=== PATIENT | female | born 1945 | race Caucasian/White ===

== ENCOUNTER 2018-07-30 21:39 | Emergency (ER) | payer MEDICARE ==
[2018-07-30] MEDS ORDERED: ONDANSETRON 4 MG/2 ML VIAL IVP STA (23:25)
[2018-07-30] MEDS ORDERED: SODIUM CHLORIDE 0.9% 1,000 ML IV STA (23:25)
[2018-07-30] MEDS ORDERED: ACETAMINOPHEN IV (For NPO) 1,000 MG in EMPTY BAG 1 BAG IVPB STA (23:26)
[2018-07-30 23:34] LABS: Basophils % (A) 0 %; Eosinophils # (A) 0.1 k/uL (0-0.7); Eosinophils % (A) 1 %; HCT 43.8 % (34.0-46.0); HGB 14.3 gm/dL (11.4-16.0); Lymphocytes # (A) 0.9 k/uL (1.0-4.8); Lymphocytes % (A) 10 %; MCH 29.9 pg (25.0-35.0); MCHC 32.6 g/dL (31.0-37.0); MCV 91.8 fL (80.0-100.0); Monocytes # (A) 0.5 k/uL (0-1.0); Monocytes % (A) 6 %; Neutrophils # (A) 7.6 k/uL (1.3-7.7); Neutrophils % (A) 83 %; Platelet Count 237 k/uL (150-450); RBC 4.77 m/uL (3.80-5.40); RDW 13.1 % (11.5-15.5); WBC 9.1 k/uL (3.8-10.6)
--- NOTE | 2018-07-30 23:48 | XR ---
EXAMINATION TYPE: XR chest 2V DATE OF EXAM: 07/30/2018 COMPARISON: To 413 HISTORY: Dizziness TECHNIQUE: Frontal and lateral views of the chest are obtained. FINDINGS: Heart and mediastinum are normal. Lungs are clear of consolidation. There is no pleural ef fusion. Costophrenic angles are clear. IMPRESSION: No active cardiopulmonary disease. There is slight improved inspiration compared to old exam.
[2018-07-30 23:49] LABS: ALT 33 U/L (9-52); AST 27 U/L (14-36); Albumin 4.4 g/dL (3.5-5.0); Alkaline Phosphatase 44 U/L (38-126); Amylase 47 U/L (30-110); Anion Gap 11 mmol/L; Blood Urea Nitrogen 14 mg/dL (7-17); Carbon Dioxide 25 mmol/L (22-30); Chloride 100 mmol/L (98-107); Glucose 162 mg/dL (74-99); Lipase 91 U/L (23-300); Sodium 136 mmol/L (137-145); Total Bilirubin 0.6 mg/dL (0.2-1.3); Total Protein 7.5 g/dL (6.3-8.2)
[2018-07-30 23:54] LABS: Potassium 4.4 mmol/L (3.5-5.1)
[2018-07-31 00:52] LABS: Appearance,Urine Clear (Clear); Bilirubin,Urine Negative (Negative); Blood,Urine Negative (Negative); Color,Urine Light Yellow; Glucose,Urine (UA) 1+ (Negative); Ketones,Urine 1+ (Negative); Leukocyte Esterase,Urine Moderate (Negative); Mucus,Urine Rare /hpf; Nitrite,Urine Negative (Negative); Protein,Urine Negative (Negative); RBC,Urine 1 /hpf (0-5); Specific Gravity,Urine 1.009 (1.001-1.035); Squamous Epithelial Cell,Urine 1 /hpf (0-4); Urobilinogen,Urine <2.0 mg/dL (<2.0); WBC,Urine 14 /hpf (0-5)
--- NOTE | 2018-07-31 01:44 | CT ---
EXAMINATION TYPE: CT brain wo con DATE OF EXAM: 07/31/2018 COMPARISON: 10/25/2012 HISTORY: Prior 2013, Dizziess, [place], nausea CT DLP: 1017.90 mGycm Automated exposure control for dose reduction was used. FINDINGS: There is mild cerebral cortical atrophy. There is no mass effect nor midline shift. There is no sign of intracranial hemorrhage. The calvarium is intact. IMPRESSION: NEGATIVE CT SCAN OF THE BRAIN. MINIMAL ATROPHY. NO CHANGE.
[2018-07-31] MEDS ORDERED: KETOROLAC 30 MG/ML 1 ML VIAL IVP STA (01:51)
--- NOTE | 2018-07-31 01:53 | ED ---
Dizziness HPI - General Chief Complaint: Dizziness Stated Complaint: dizzy/vomiting Time Seen by Provider: 07/30/18 22:43 Source: patient Mode of arrival: ambulatory Limitations: no limitations - History of Present Illness Initial Comments: 73-year-old female patient presents to the emergency department today with complaints of dizziness, vomiting, and diarrhea. Patient states that she woke that early this morning with dizziness. Reports that the room would feel like it was spinning whenever she is sat up or stood up. Patient states that she had to hold onto furniture in order to walk. Patient states early this afternoon she started to have vomiting and diarrhea. States that she had several episodes of each. She denies any hematochezia, melena, or hematemesis with this. She denies any fever, chills, abdominal pain, or weakness. States that she did develop a headache as well this evening. She reports pain to her entire head as well as her face and teeth. She denies any nasal congestion or drainage. Denies any ear pain. Denies any numbness, tingling, or weakness to her extremities. Denies any blurred or double vision. Denies any sensitivity to light or sound. Patient denies any recent rash, shortness breath, chest pain , back pain, hematuria, dysuria, urinary urgency, urinary frequency, or any other complaints. - Related Data Home Medications Medication Instructions Recorded Confirmed Bismuth Subsalicylate 262 mg PO ONCE PRN 07/30/18 07/30/18 [Pepto-Bismol] Meclizine HCl 12.5 mg PO DAILY PRN 07/30/18 07/30/18 Metoprolol Tartrate [Lopressor] 25 mg PO BID 07/30/18 07/30/18 glipiZIDE [Glucotrol] 5 mg PO AC-BID 07/30/18 07/30/18 metFORMIN HCL [Glucophage] 500 mg PO BID 07/30/18 07/30/18 Previous Rx's Medication Instructions Recorded Ondansetron [Zofran ODT] 4 mg PO Q8HR PRN #10 tab 07/31/18 Allergies Allergy/AdvReac Type Severity Reaction Status Date / Time NARCOTICS AdvReac Vomiting Uncoded 07/30/18 22:07 Review of Systems ROS Statement: Those systems with pertinent positive or pertinent negative responses have been documented in the HPI. ROS Other: All systems not noted in ROS Statement are negative. Past Medical History Past Medical History: Diabetes Mellitus Additional Past Medical History / Comment(s): IRREGULAR HEART RATE History of Any Multi-Drug Resistant Organisms: None Reported Past Surgical History: Appendectomy, Section, Cholecystectomy, Hysterectomy, Tonsillectomy Additional Past Surgical History / Comment(s): 2 WRIST SURGERIES LEFT Past Psychological History: No Psychological Hx Reported Smoking Status: Former smoker Past Alcohol Use History: None Reported Past Drug Use History: None Reported General Exam Limitations: no limitations General appearance: alert, in no apparent distress, other (Physical well- developed, well-nourished elderly female patient in no acute distress. Vital signs upon presentation are temperature 98.5F, pulse 93, respirations 18, blood pressure 155/90, pulse ox 96% on room air.) Eye exam: Present: normal appearance, PERRL, EOMI. Absent: scleral icterus, conjunctival injection, nystagmus, periorbital swelling ENT exam: Present: normal exam, normal oropharynx, mucous membranes moist, TM's normal bilaterally Respiratory exam: Present: normal lung sounds bilaterally. Absent: respiratory distress, wheezes, rales, rhonchi, stridor Cardiovascular Exam: Present: regular rate, normal rhythm, normal heart sounds. Absent: systolic murmur, diastolic murmur, rubs, gallop, clicks GI/Abdominal exam: Present: soft, normal bowel sounds. Absent: distended, tenderness, guarding, rebound, rigid Neurological exam: Present: alert, oriented X3, CN II-XII intact, other ( Strength in all 4 extremities is 5/5.) Psychiatric exam: Present: normal affect, normal mood Skin exam: Present: warm, dry, intact, normal color. Absent: rash Course Vital Signs 07/30/18 07/31/18 22:02 02:22 Temperature 98.5 F 97.9 F Pulse Rate 93 88 Respiratory 18 16 Rate Blood Pressure 155/90 134/80 O2 Sat by Pulse 96 98 Oximetry EKG Findings - EKG Comments: EKG Findings:: EKG obtained at 2240 shows normal sinus rhythm with a ventricular rate of 89, TN interval 154, QRS duration 88, QT 378, QTC 459. No evidence of ST elevation or depression. Medical Decision Making - Medical Decision Making 73-year-old female patient presented to the emergency department today for evaluation of dizziness, vomiting, and diarrhea. Physical examination was relatively unremarkable. Patient was neurologically intact. Labs reviewed and were unremarkable. Urine did have 14 white blood cells, this has been sent for culture. CT brain was unremarkable, showed no acute intracranial abnormalities. Chest x-ray showed no acute cardiopulmonary process. Patient was given IV fluids and nausea medicine here in the department. Upon reevaluation she is feeling better. She is able to sit and stand up, states that her dizziness has decreased. Did discuss that her symptoms are consistent with gastroenteritis. She is instructed to follow-up with her primary care physician for recheck in 1-2 days. Return parameters discussed in detail. She verbalizes understanding and agrees with this plan. - Lab Data Result diagrams: 07/30/18 22:50 07/30/18 22:50 Lab Results 07/30/18 07/30/18 07/30/18 Range/Units 22:50 22:50 22:50 WBC 9.1 (3.8-10.6) k/uL RBC 4.77 (3.80-5.40) m/uL Hgb 14.3 (11.4-16.0) gm/dL Hct 43.8 (34.0-46.0) % MCV 91.8 (80.0-100.0) fL MCH 29.9 (25.0-35.0) pg MCHC 32.6 (31.0-37.0) g/dL RDW 13.1 (11.5-15.5) % Plt Count 237 (150-450) k/uL Neutrophils % 83 % Lymphocytes % 10 % Monocytes % 6 % Eosinophils % 1 % Basophils % 0 % Neutrophils # 7.6 (1.3-7.7) k/uL Lymphocytes # 0.9 L (1.0-4.8) k/uL Monocytes # 0.5 (0-1.0) k/uL Eosinophils # 0.1 (0-0.7) k/uL Basophils # 0.0 (0-0.2) k/uL PT 10.0 (9.0-12.0) sec INR 1.0 (<1.2) Sodium 136 L (137-145) mmol/L Potassium 4.4 (3.5-5.1) mmol/L Chloride 100 (98-107) mmol/L Carbon Dioxide 25 (22-30) mmol/L Anion Gap 11 mmol/L BUN 14 (7-17) mg/dL Creatinine 0.63 (0.52-1.04) mg/dL Est GFR (CKD-EPI)AfAm >90 (>60 ml/min/1.73 sqM) Est GFR (CKD-EPI)NonAf 89 (>60 ml/min/1.73 sqM) Glucose 162 H (74-99) mg/dL Calcium 10.0 (8.4-10.2) mg/dL Total Bilirubin 0.6 (0.2-1.3) mg/dL AST 27 (14-36) U/L ALT 33 (9-52) U/L Alkaline Phosphatase 44 (38-126) U/L Troponin I (0.000-0.034) ng/mL Total Protein 7.5 (6.3-8.2) g/dL Albumin 4.4 (3.5-5.0) g/dL Amylase 47 (30-110) U/L Lipase 91 (23-300) U/L Urine Color Urine Appearance (Clear) Urine pH (5.0-8.0) Ur Specific [place] (1.001-1.035) Urine Protein (Negative) Urine Glucose (UA) (Negative) Urine Ketones (Negative) Urine Blood (Negative) Urine Nitrite (Negative) Urine Bilirubin (Negative) Urine Urobilinogen (<2.0) mg/dL Ur Leukocyte Esterase (Negative) Urine RBC (0-5) /hpf Urine WBC (0-5) /hpf Ur Squamous Epith Cells (0-4) /hpf Urine Mucus (None) /hpf 07/30/18 07/31/18 Range/Units 22:50 00:30 WBC (3.8-10.6) k/uL RBC (3.80-5.40) m/uL Hgb (11.4-16.0) gm/dL Hct (34.0-46.0) % MCV (80.0-100.0) fL MCH (25.0-35.0) pg MCHC (31.0-37.0) g/dL RDW (11.5-15.5) % Plt Count (150-450) k/uL Neutrophils % % Lymphocytes % % Monocytes % % Eosinophils % % Basophils % % Neutrophils # (1.3-7.7) k/uL Lymphocytes # (1.0-4.8) k/uL Monocytes # (0-1.0) k/uL Eosinophils # (0-0.7) k/uL Basophils # (0-0.2) k/uL PT (9.0-12.0) sec INR (<1.2) Sodium (137-145) mmol/L Potassium (3.5-5.1) mmol/L Chloride (98-107) mmol/L Carbon Dioxide (22-30) mmol/L Anion Gap mmol/L BUN (7-17) mg/dL Creatinine (0.52-1.04) mg/dL Est GFR (CKD-EPI)AfAm (>60 ml/min/1.73 sqM) Est GFR (CKD-EPI)NonAf (>60 ml/min/1.73 sqM) Glucose (74-99) mg/dL Calcium (8.4-10.2) mg/dL Total Bilirubin (0.2-1.3) mg/dL AST (14-36) U/L ALT (9-52) U/L Alkaline Phosphatase (38-126) U/L Troponin I <0.012 (0.000-0.034) ng/mL Total Protein (6.3-8.2) g/dL Albumin (3.5-5.0) g/dL Amylase (30-110) U/L Lipase (23-300) U/L Urine Color Light Yellow Urine Appearance Clear (Clear) Urine pH 7.0 (5.0-8.0) Ur Specific [place] 1.009 (1.001-1.035) Urine Protein Negative (Negative) Urine Glucose (UA) 1+ H (Negative) Urine Ketones 1+ H (Negative) Urine Blood Negative (Negative) Urine Nitrite Negative (Negative) Urine Bilirubin Negative (Negative) Urine Urobilinogen <2.0 (<2.0) mg/dL Ur Leukocyte Esterase Moderate H (Negative) Urine RBC 1 (0-5) /hpf Urine WBC 14 H (0-5) /hpf Ur Squamous Epith Cells 1 (0-4) /hpf Urine Mucus Rare H (None) /hpf - Radiology Data Radiology results: report reviewed, image reviewed CT brain without contrast was obtained. There is mild cerebral cortical atrophy. No mass effect or midline shift. There is no sign of intracranial hemorrhage. The calvarium is intact. Impression by Dr. Damon shows negative computed tomography scan of the brain. Minimal atrophy. No change. Two-view x-ray of the chest is obtained. Heart mediastinum are normal. Lungs are clear consolidation. There is no pleural effusion. Costophrenic angles are clear. Impression by Dr. Damon shows no active cardiopulmonary disease. There are slight improved inspiration compared to old exam. Disposition Clinical Impression: Dizziness, Gastroenteritis Disposition: HOME SELF-CARE Condition: Good Instructions: Gastroenteritis (ED), Dizziness (ED) Additional Instructions: Start with clear liquid diet and advance as tolerated. Take medications as directed. Follow-up with your primary care physician for recheck in 1-2 days. Return here immediately for any new, worsening, or concerning symptoms. Prescriptions: Ondansetron [Zofran ODT] 4 mg PO Q8HR PRN #10 tab PRN Reason: Nausea Is patient prescribed a controlled substance at d/c from ED?: No Referrals: Joe Nava DO [Primary Care Provider] - 1-2 days Time of Disposition: 01:53
[2018-07-31] MEDS ORDERED: ONDANSETRON 4 MG ODT STARTER PACK 2 TAB BTL PO STA (02:12)
[2018-07-31 02:23] VITALS: BP 134/80; PULSE 88; RESP 16; TEMP 97.9
== END 2018-07-31 02:23 | disposition home or self-care (01) ==
LOC: EC 21:39
DX: K52.9 Noninfective gastroenteritis and colitis, unspecified (principal); R42 Dizziness and giddiness; E11.9 Type 2 diabetes mellitus without complications; Z79.84 Long term (current) use of oral hypoglycemic drugs; Z79.899 Other long term (current) drug therapy; Z87.891 Personal history of nicotine dependence; Z88.5 Allergy status to narcotic agent
CPT/HCPCS: 99284; 96374; 96375 ×2; 96361; 36415; 93005; 80053; 82150; 83690; 84484; 85025; 85610; 81001; 87086; 71046; 70450; J2405; J1885; J0131; S0119

== ENCOUNTER 2018-11-16 00:15 | Emergency (ER) | payer MEDICARE ==
[2018-11-16 00:21] VITALS: RESP 18
[2018-11-16] MEDS ORDERED: SODIUM CHLORIDE 0.9% 1,000 ML IV STA (00:27)
--- NOTE | 2018-11-16 00:28 | ED ---
Abdominal Pain HPI - General Chief Complaint: Abdominal Pain Stated Complaint: Abd Pain Time Seen by Provider: 11/16/18 00:26 Source: patient Mode of arrival: ambulatory Limitations: no limitations - History of Present Illness Initial Comments: Blaire is a pleasant 73-year-old female presents the emergency department for evaluation of progressively worsening left-sided flank pain for 3 days duration. Patient reports the pain is worse with laying down but she cannot find any comfortable positions. Patient reports decreased appetite but denies any other complaints including fevers, chills, nausea, vomiting, dysuria hematuria change in bladder habits. Patient does have a history of kidney stones but reports this is not similar. Patient also states that she had a colonoscopy 3 weeks ago and was told that she had diverticulosis but she has never had diverticulitis. She did have 3 polyps removed at that time of the colonoscopy but was advised that they were benign. She reports that the colonoscopy was performed due to recent change in bowel habits including having frequent diarrhea and sudden onset of diarrhea which has resulted in her having some inability to make it to the restroom prior to having an accident. She reports that this is improving as she has started taking a fiber supplement since being evaluated by gastroenterology. - Related Data Home Medications Medication Instructions Recorded Confirmed Metoprolol Tartrate [Lopressor] 25 mg PO BID 07/30/18 11/16/18 glipiZIDE [Glucotrol] 5 mg PO AC-BID 07/30/18 11/16/18 metFORMIN HCL [Glucophage] 500 mg PO BID 07/30/18 11/16/18 Previous Rx's Medication Instructions Recorded Cephalexin [Keflex] 500 mg PO Q6HR 5 Days #12 cap 11/16/18 Allergies Allergy/AdvReac Type Severity Reaction Status Date / Time NARCOTICS AdvReac Vomiting Uncoded 11/16/18 00:21 Review of Systems ROS Statement: Those systems with pertinent positive or pertinent negative responses have been documented in the HPI. ROS Other: All systems not noted in ROS Statement are negative. Past Medical History Past Medical History: Diabetes Mellitus Additional Past Medical History / Comment(s): IRREGULAR HEART RATE History of Any Multi-Drug Resistant Organisms: None Reported Past Surgical History: Appendectomy, Section, Cholecystectomy, Hysterectomy, Orthopedic Surgery, Tonsillectomy Additional Past Surgical History / Comment(s): 2 WRIST SURGERIES LEFT , colonoscopy Past Psychological History: No Psychological Hx Reported Smoking Status: Former smoker Past Alcohol Use History: None Reported Past Drug Use History: None Reported General Exam - General Exam Comments Initial Comments: Physical Exam GENERAL: Patient is well-developed and well-nourished. Patient is nontoxic and well- hydrated and is in no distress. HENT: Normocephalic, Atraumatic. EYES: PERRL, EOMI PULMONARY: Unlabored respirations. No audible rales rhonchi or wheezing was noted. CARDIOVASCULAR: There is a regular rate and rhythm without any murmurs gallops or rubs. ABDOMEN: Soft and nontender with normal bowel sounds. SKIN: Skin is clear with no lesions or rashes and otherwise unremarkable. : Deferred NEUROLOGIC: Patient is alert and oriented x3. Moving all extremities spontaneously MUSCULOSKELETAL: Normal extremities with adequate strength and full range of motion. No lower extremity swelling or edema. No calf tenderness. PSYCHIATRIC: Normal psychiatric evaluation. 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 Patient agreeable to plan for discharge home with oral antibiotics. First dose ordered and administered in the emergency department patient was given a Dosepak to go home with and a prescription for 5 days. Patient's pertaining care were answered return parameters were discussed the patient was discharged home in stable condition - Lab Data Result diagrams: 11/16/18 00:50 11/16/18 00:50 Lab Results 11/16/18 11/16/18 11/16/18 Range/Units 00:50 00:50 00:50 WBC 9.3 (3.8-10.6) k/uL RBC 4.50 (3.80-5.40) m/uL Hgb 14.0 (11.4-16.0) gm/dL Hct 41.9 (34.0-46.0) % MCV 93.0 (80.0-100.0) fL MCH 31.1 (25.0-35.0) pg MCHC 33.4 (31.0-37.0) g/dL RDW 13.3 (11.5-15.5) % Plt Count 222 (150-450) k/uL Neutrophils % 67 % Lymphocytes % 20 % Monocytes % 6 % Eosinophils % 4 % Basophils % 1 % Neutrophils # 6.2 (1.3-7.7) k/uL Lymphocytes # 1.9 (1.0-4.8) k/uL Monocytes # 0.6 (0-1.0) k/uL Eosinophils # 0.4 (0-0.7) k/uL Basophils # 0.1 (0-0.2) k/uL Sodium 141 (137-145) mmol/L Potassium 4.3 (3.5-5.1) mmol/L Chloride 105 (98-107) mmol/L Carbon Dioxide 29 (22-30) mmol/L Anion Gap 7 mmol/L BUN 16 (7-17) mg/dL Creatinine 0.96 (0.52-1.04) mg/dL Est GFR (CKD-EPI)AfAm 68 (>60 ml/min/1.73 sqM) Est GFR (CKD-EPI)NonAf 59 (>60 ml/min/1.73 sqM) Glucose 131 H (74-99) mg/dL Calcium 9.7 (8.4-10.2) mg/dL Total Bilirubin 0.4 (0.2-1.3) mg/dL AST 18 (14-36) U/L ALT 26 (9-52) U/L Alkaline Phosphatase 55 (38-126) U/L Total Protein 7.0 (6.3-8.2) g/dL Albumin 4.2 (3.5-5.0) g/dL Amylase 55 (30-110) U/L Lipase 269 (23-300) U/L Urine Color Light Yellow Urine Appearance Clear (Clear) Urine pH 7.0 (5.0-8.0) Ur Specific [place] 1.007 (1.001-1.035) Urine Protein Negative (Negative) Urine Glucose (UA) Negative (Negative) Urine Ketones Negative (Negative) Urine Blood Negative (Negative) Urine Nitrite Negative (Negative) Urine Bilirubin Negative (Negative) Urine Urobilinogen <2.0 (<2.0) mg/dL Ur Leukocyte Esterase Large H (Negative) Urine RBC 1 (0-5) /hpf Urine WBC 59 H (0-5) /hpf Ur Squamous Epith Cells 1 (0-4) /hpf Disposition Clinical Impression: Left flank pain, UTI (urinary tract infection) Disposition: HOME SELF-CARE Condition: Good Instructions (If sedation given, give patient instructions): Flank Pain (ED) Prescriptions: Cephalexin [Keflex] 500 mg PO Q6HR 5 Days #12 cap Is patient prescribed a controlled substance at d/c from ED?: No Referrals: Joe Nava DO [Primary Care Provider] - 1-2 days
[2018-11-16 01:09] LABS: Basophils # (A) 0.1 k/uL (0-0.2); Basophils % (A) 1 %; Eosinophils # (A) 0.4 k/uL (0-0.7); Eosinophils % (A) 4 %; HCT 41.9 % (34.0-46.0); Lymphocytes # (A) 1.9 k/uL (1.0-4.8); Lymphocytes % (A) 20 %; MCH 31.1 pg (25.0-35.0); MCHC 33.4 g/dL (31.0-37.0); Monocytes # (A) 0.6 k/uL (0-1.0); Monocytes % (A) 6 %; Neutrophils # (A) 6.2 k/uL (1.3-7.7); Neutrophils % (A) 67 %; Platelet Count 222 k/uL (150-450); RDW 13.3 % (11.5-15.5); WBC 9.3 k/uL (3.8-10.6)
--- NOTE | 2018-11-16 01:20 | XR ---
EXAMINATION TYPE: XR KUB DATE OF EXAM: 11/16/2018 COMPARISON: NONE HISTORY: Abdominal pain TECHNIQUE: 2 views upright FINDINGS: There is some subsegmental atelectasis at both lung bases. Bowel gas pattern is normal. The re is no sign of intestinal obstruction or pneumoperitoneum. Fecal pattern is normal. There are no pa thologic calcifications over the right kidney. There is a possible 4 mm calculus interpolar left kidn ey. IMPRESSION: Possible left renal calculus. Atelectasis at the lung bases.
[2018-11-16 01:22] LABS: Appearance,Urine Clear (Clear); Bilirubin,Urine Negative (Negative); Blood,Urine Negative (Negative); Color,Urine Light Yellow; Glucose,Urine (UA) Negative (Negative); Ketones,Urine Negative (Negative); Leukocyte Esterase,Urine Large (Negative); Nitrite,Urine Negative (Negative); Protein,Urine Negative (Negative); RBC,Urine 1 /hpf (0-5); Specific Gravity,Urine 1.007 (1.001-1.035); Squamous Epithelial Cell,Urine 1 /hpf (0-4); Urobilinogen,Urine <2.0 mg/dL (<2.0); WBC,Urine 59 /hpf (0-5)
[2018-11-16 01:27] LABS: Albumin 4.2 g/dL (3.5-5.0); Calcium 9.7 mg/dL (8.4-10.2); Potassium 4.3 mmol/L (3.5-5.1); Total Bilirubin 0.4 mg/dL (0.2-1.3)
--- NOTE | 2018-11-16 02:20 | CT ---
EXAMINATION TYPE: CT abdomen pelvis w con DATE OF EXAM: 11/16/2018 COMPARISON: None HISTORY: Left sided abd pain CT DLP: 1057 mGycm Automated exposure control for dose reduction was used. TECHNIQUE: Helical acquisition of images was performed from the lung bases through the pelvis. CONTRAST: Performed without Oral Contrast and with IV Contrast, patient injected with 100 mL of Isovue 300. FINDINGS: There is some linear density at the lung bases consistent with atelectasis. Heart size is normal. The re is no pericardial effusion. There is no pleural effusion. There is small hiatal hernia. The remain wilner of the stomach appears normal. Liver appears normal. Bile ducts are not dilated. There is apparent cholecystectomy. Spleen appears n ormal. There is no pancreatic mass. There is punctate pancreatic calcification at could relate to old inflammatory disease. There is no adrenal mass. Kidneys show satisfactory contrast opacification. There is irregular 5 mm c alculus in the upper pole right kidney. There is a 5 mCi calculus lower pole left kidney. Ureters are not dilated. There is satisfactory contrast excretion. Bladder distends smoothly. There is no inguinal hernia. There is no free fluid in the pelvis. The oneyda endix is not seen. There is no sign of appendicitis. There is no mesenteric edema. Abdominal aorta sh ows mild atheromatous change. There is no sign of free air. There is no ascites. Lumbar vertebra have normal alignment. Posterior elements are intact. Disc spaces are fairly well-nadia ntained. Bony pelvis is intact. There is 3.5 x 2 cm oval-shaped fat density mass within the right glu teal muscle related to lipoma. IMPRESSION: MILD SCARRING AND SUBSEGMENTAL ATELECTASIS AT THE LUNG BASES. SMALL HIATAL HERNIA. NONOBSTRUCTING WERO ATERAL RENAL CALCULI. MILD ATHEROSCLEROTIC VASCULAR DISEASE. I DO NOT SEE A CAUSE FOR LEFT FLANK PAIN . THERE ARE A FEW SIGMOID DIVERTICULA WITHOUT EVIDENCE OF DIVERTICULITIS.
[2018-11-16] MEDS ORDERED: CEPHALEXIN 500MG STARTER PACK 4 CAP BTL PO STA (03:29)
[2018-11-16 03:39] VITALS: BP 139/82; PULSE 87; TEMP 97.9
== END 2018-11-16 03:30 | disposition home or self-care (01) ==
LOC: EC 00:15
DX: N39.0 Urinary tract infection, site not specified (principal); R10.9 Unspecified abdominal pain; R19.7 Diarrhea, unspecified; E11.9 Type 2 diabetes mellitus without complications; Z87.891 Personal history of nicotine dependence; Z79.84 Long term (current) use of oral hypoglycemic drugs; Z79.899 Other long term (current) drug therapy; Z88.5 Allergy status to narcotic agent; Z90.49 Acquired absence of other specified parts of digestive tract; Z90.710 Acquired absence of both cervix and uterus
CPT/HCPCS: 36415; 80053; 82150; 83690; 85025; 81001; 74018; 74177; 99284; 96360; Q9967

== ENCOUNTER 2022-11-17 23:02 | Emergency (ER) | payer MEDICARE ==
[2022-11-17] MEDS ORDERED: SODIUM CHLORIDE 0.9% 1,000 ML IV STA (23:11)
--- NOTE | 2022-11-17 23:12 | ED ---
Abdominal Pain HPI - General Stated Complaint: abdominal pain Time Seen by Provider: 11/17/22 23:11 Source: RN notes reviewed, old records reviewed - History of Present Illness Initial Comments: This is a 77-year-old female to the ER for evaluation, she presents today for evaluation of abdominal pain left-sided abdominal pain positive nausea no vomiting symptoms about 4 PM or just before dinner today. They've been episodic. She does have a prior history of positive colonoscopy for diverticulosis no history of infection no history of surgery. Patient states also reports from her belly of the removed gallbladder, uterus, appendix. Patient has no fevers no travel history no sick contacts and has never had surgery at this hospital MD Complaint: abdominal pain -: hour(s) Location: diffuse, LLQ Radiation: epigastric, suprapubic Migration to: LLQ Severity: moderate Severity scale (1-10): 4 Quality: cramping, stabbing Consistency: constant, intermittent Improves With: nothing Worsens With: nothing Associated Symptoms: nausea Treatments Prior to Arrival: other (0) - Related Data Home Medications Medication Instructions Recorded Confirmed Metoprolol Tartrate [Lopressor] 25 mg PO BID 07/30/18 11/16/18 glipiZIDE [Glucotrol] 5 mg PO AC-BID 07/30/18 11/16/18 metFORMIN HCL [Glucophage] 500 mg PO BID 07/30/18 11/16/18 Previous Rx's Medication Instructions Recorded Cephalexin [Keflex] 500 mg PO Q6HR 5 Days #12 cap 11/16/18 Allergies Allergy/AdvReac Type Severity Reaction Status Date / Time phenylephrine AdvReac Swelling Verified 11/17/22 23:13 NARCOTICS AdvReac Vomiting Uncoded 11/17/22 23:13 Review of Systems ROS Statement: Those systems with pertinent positive or pertinent negative responses have been documented in the HPI. ROS Other: All systems not noted in ROS Statement are negative. Past Medical History Past Medical History: Diabetes Mellitus Additional Past Medical History / Comment(s): IRREGULAR HEART RATE History of Any Multi-Drug Resistant Organisms: None Reported Past Surgical History: Appendectomy, Section, Cholecystectomy, Hysterectomy, Orthopedic Surgery, Tonsillectomy Additional Past Surgical History / Comment(s): 2 WRIST SURGERIES LEFT , colonoscopy Past Psychological History: No Psychological Hx Reported Past Alcohol Use History: None Reported Past Drug Use History: None Reported General Exam General appearance: alert, in no apparent distress Head exam: Present: atraumatic, normocephalic, normal inspection Eye exam: Present: normal appearance, PERRL, EOMI. Absent: scleral icterus, conjunctival injection, periorbital swelling ENT exam: Present: normal exam, mucous membranes moist Neck exam: Present: normal inspection. Absent: tenderness, meningismus, lymphadenopathy Respiratory exam: Present: normal lung sounds bilaterally. Absent: respiratory distress, wheezes, rales, rhonchi, stridor Cardiovascular Exam: Present: regular rate, normal rhythm, normal heart sounds. Absent: systolic murmur, diastolic murmur, rubs, gallop, clicks GI/Abdominal exam: Present: soft, normal bowel sounds. Absent: distended, tenderness, guarding, rebound, rigid Extremities exam: Present: normal inspection, full ROM, normal capillary refill. Absent: tenderness, pedal edema, joint swelling, calf tenderness Back exam: Present: normal inspection Neurological exam: Present: alert, oriented X3, CN II-XII intact Psychiatric exam: Present: normal affect, normal mood Skin exam: Present: warm, dry, intact, normal color. Absent: rash Course Vital Signs 11/17/22 11/18/22 23:03 01:15 Temperature 97.6 F Pulse Rate 107 H 85 Respiratory 16 16 Rate Blood Pressure 156/81 145/83 O2 Sat by Pulse 95 96 Oximetry - Reevaluation(s) Reevaluation #1: 11/17/22 23:19 Medical record is reviewed Reevaluation #2: 11/17/22 23:19 Patient has abdominal pain is well-controlled Reevaluation #3: 11/17/22 23:19 Patient informed results questions answered Reevaluation #4: 11/17/22 23:19 80 abdominal pain movement Reevaluation #5: 11/17/22 23:19 Was pt. sent in by a medical professional or institution? @ -[by , PA, FILAMENT MAKER, urgent care, hospital, or longterm] Did you speak to anyone other than the patient for history? @ -[EMS, parent, family, police, friend?] Did you review nursing and triage notes? @ -[agree or disagree, why?] Were old charts reviewed? @ -[outside hosp., previous admissions, EMS record, old EKG, old radiological studies, urgent care reports/EKGs, longterm records?] Differential Diagnosis? @ -[chest pain, altered mental status abdominal pain women, abdominal pain men, vaginal bleeding, weakness, fever, dyspnea, syncope, headache, dizziness, GI bleed, back pain, seizure] EKG interpreted by me (3pts min.)? @ -[none] X-rays interpreted by me (1pt min.)? @ -[none] CT interpreted by me (1pt min.)? @ -[none] U/S interpreted by me (1pt. min.)? @ -[none] What testing was considered but not performed? (CT, X-rays, U/S, labs)? Why? @ [CT, X-rays, U/S, labs? Why?] What meds were considered but not given? Why? @ -[none] Did you discuss the management of the patient with other professionals? @ -[professionals i.e. Dr, PA, FILAMENT MAKER, Lab, RT, Psych Nurse, Food Safety Auditor, Governor Assembler, Teacher, Beef Grinder, disease case manager? Give summary] Did you reconcile home meds? @ -[none] Was smoking cessation discussed for >3mins.? @ -[none] Was critical care preformed (if so, how long)? @ -[none] Were there social determinants of health that impacted care today? How? (Homelessness, low income, unemployed, alcoholism, drug addiction, transportation, low edu. Level, literacy, decrease access to med. care, retirement, rehab)? @ -[Homelessness, low income, unemployed, alcoholism, drug addiction, trans portation, low edu. Level, literacy, decrease access to med. care, retirement, rehab?] Was there de-escalation of care discussed even if they declined? (Discuss DNR or withdrawal of care, Hospice)? @ -[Discuss DNR or withdrawal of care, Hospice?] What co-morbidities impacted this encounter? (DM, HTN, Smoking, COPD, CAD, Cancer, CVA, Hep., AIDS, mental health diagnosis, sleep apnea, morbid obesity)? @ -[DM, HTN, Smoking, COPD, CAD, Cancer, CVA, Hep., AIDS, mental health diagnosis, sleep apnea, morbid obesity?] Was patient admitted / discharged? @ -[hospital course] Undiagnosed new problem with uncertain prognosis? @ -[none] Drug Therapy requiring intensive monitoring for toxicity (Heparin, Nitro, Insulin, Cardizem)? @ -[none] Were any procedures done? @ -[none] Diagnosis/symptom? @ -[default] Acute, or Chronic, or Acute on Chronic? @ -[default] Uncomplicated (without systemic symptoms) or Complicated (systemic symptoms)? @ -[default] Side effects of treatment? @ -[none] Exacerbation, Progression, or Severe Exacerbation] @ -[no] Poses a threat to life or bodily function? @ -[no] Medical Decision Making - Medical Decision Making 37 female DF for evaluation of pain nausea vomiting symptoms are all resolved 60 scan is negative labwork is normal. Will be discharged home - Lab Data Result diagrams: 11/17/22 23:32 11/17/22 23:32 Lab Results 11/17/22 11/17/22 11/17/22 Range/Units 23:32 23:32 23:32 WBC 8.4 (3.8-10.6) k/uL RBC 4.65 (3.80-5.40) m/uL Hgb 14.1 (11.4-16.0) gm/dL Hct 42.0 (34.0-46.0) % MCV 90.3 (80.0-100.0) fL MCH 30.2 (25.0-35.0) pg MCHC 33.5 (31.0-37.0) g/dL RDW 13.2 (11.5-15.5) % Plt Count 202 (150-450) k/uL MPV 7.7 Neutrophils % 60 % Lymphocytes % 27 % Monocytes % 7 % Eosinophils % 4 % Basophils % 1 % Neutrophils # 5.1 (1.3-7.7) k/uL Lymphocytes # 2.3 (1.0-4.8) k/uL Monocytes # 0.6 (0-1.0) k/uL Eosinophils # 0.3 (0-0.7) k/uL Basophils # 0.1 (0-0.2) k/uL Sodium 142 (137-145) mmol/L Potassium 4.0 (3.5-5.1) mmol/L Chloride 106 (98-107) mmol/L Carbon Dioxide 30 (22-30) mmol/L Anion Gap 6 mmol/L BUN 12 (7-17) mg/dL Creatinine 0.86 (0.52-1.04) mg/dL Est GFR (CKD-EPI)AfAm 76 (>60 ml/min/1.73 sqM) Est GFR (CKD-EPI)NonAf 66 (>60 ml/min/1.73 sqM) Glucose 124 H (74-99) mg/dL Plasma Lactic Acid Daniel 1.0 (0.7-2.0) mmol/L Calcium 9.1 (8.4-10.2) mg/dL Total Bilirubin 0.2 (0.2-1.3) mg/dL AST 19 (14-36) U/L ALT 17 (4-34) U/L Alkaline Phosphatase 65 (38-126) U/L Troponin I (0.000-0.034) ng/mL Total Protein 6.9 (6.3-8.2) g/dL Albumin 4.2 (3.5-5.0) g/dL Amylase 50 (30-110) U/L Lipase 206 (23-300) U/L 11/17/22 Range/Units 23:32 WBC (3.8-10.6) k/uL RBC (3.80-5.40) m/uL Hgb (11.4-16.0) gm/dL Hct (34.0-46.0) % MCV (80.0-100.0) fL MCH (25.0-35.0) pg MCHC (31.0-37.0) g/dL RDW (11.5-15.5) % Plt Count (150-450) k/uL MPV Neutrophils % % Lymphocytes % % Monocytes % % Eosinophils % % Basophils % % Neutrophils # (1.3-7.7) k/uL Lymphocytes # (1.0-4.8) k/uL Monocytes # (0-1.0) k/uL Eosinophils # (0-0.7) k/uL Basophils # (0-0.2) k/uL Sodium (137-145) mmol/L Potassium (3.5-5.1) mmol/L Chloride (98-107) mmol/L Carbon Dioxide (22-30) mmol/L Anion Gap mmol/L BUN (7-17) mg/dL Creatinine (0.52-1.04) mg/dL Est GFR (CKD-EPI)AfAm (>60 ml/min/1.73 sqM) Est GFR (CKD-EPI)NonAf (>60 ml/min/1.73 sqM) Glucose (74-99) mg/dL Plasma Lactic Acid Daniel (0.7-2.0) mmol/L Calcium (8.4-10.2) mg/dL Total Bilirubin (0.2-1.3) mg/dL AST (14-36) U/L ALT (4-34) U/L Alkaline Phosphatase (38-126) U/L Troponin I <0.012 (0.000-0.034) ng/mL Total Protein (6.3-8.2) g/dL Albumin (3.5-5.0) g/dL Amylase (30-110) U/L Lipase (23-300) U/L Disposition Clinical Impression: Abdominal pain Disposition: HOME SELF-CARE Condition: Good Instructions (If sedation given, give patient instructions): Abdominal Pain (ED) Is patient prescribed a controlled substance at d/c from ED?: No Referrals: Silvino Joaquin MD [Primary Care Provider] - 1-2 days Time of Disposition: 01:55
[2022-11-17 23:13] VITALS: RESP 16; TEMP 97.6
[2022-11-17] MEDS: PANTOPRAZOLE 40 MG/10 ML VIAL IVP STA ×2 (23:30→23:33)
[2022-11-17] MEDS: ONDANSETRON 4 MG/2 ML VIAL IVP STA ×2 (23:30→23:33)
[2022-11-17 23:46] LABS: Basophils # (A) 0.1 k/uL (0-0.2); Basophils % (A) 1 %; Eosinophils # (A) 0.3 k/uL (0-0.7); Eosinophils % (A) 4 %; HGB 14.1 gm/dL (11.4-16.0); Lymphocytes # (A) 2.3 k/uL (1.0-4.8); Lymphocytes % (A) 27 %; MCH 30.2 pg (25.0-35.0); MCHC 33.5 g/dL (31.0-37.0); MCV 90.3 fL (80.0-100.0); Mean Platelet Volume 7.7; Monocytes # (A) 0.6 k/uL (0-1.0); Monocytes % (A) 7 %; Neutrophils # (A) 5.1 k/uL (1.3-7.7); Neutrophils % (A) 60 %; Platelet Count 202 k/uL (150-450); RBC 4.65 m/uL (3.80-5.40); RDW 13.2 % (11.5-15.5); WBC 8.4 k/uL (3.8-10.6)
[2022-11-17 23:57] LABS: Albumin 4.2 g/dL (3.5-5.0); Calcium 9.1 mg/dL (8.4-10.2); Total Bilirubin 0.2 mg/dL (0.2-1.3); Total Protein 6.9 g/dL (6.3-8.2)
--- NOTE | 2022-11-18 00:41 | CT ---
EXAMINATION TYPE: CT abdomen pelvis wo con DATE OF EXAM: 11/18/2022 COMPARISON: 11/16/2018 HISTORY: Left sided abdominal pain CT DLP: 714.3 mGycm Automated exposure control for dose reduction was used. Images obtained from the diaphragm to the floor the pelvis without contrast. There is mild subsegmental atelectasis at the posterior lung bases. No pleural effusion. Heart size i s normal. No pericardial effusion. There are small hilar hernia. Liver and spleen are intact. There is no evidence of pancreatic mass. Stomach is intact. The bile ducts are not dilated. There is no adrenal mass. Kidneys of normal size. There is 6 mm calcu ruth lower pole left kidney. There is a 3 mm calculus anterior right kidney. Ureters are not dilated. No hydronephrosis. The bladder distends smoothly. No retroperitoneal adenopathy. No free fluid in the pelvis. No pelvic mass. There is hysterectomy. There are numerous sigmoid diverticula. No diverticulitis. There is no mesenteric edema. No ascites o r free air. No sign of a bowel obstruction. Appendix not seen. No sign of thickened appendix. The lumbar vertebrae have normal alignment. There is mild narrowing at L5-S1 disc space. No compressi on fracture. Bony pelvis is intact. The hip joints are intact. There is right sided gluteal muscle li everett without change. IMPRESSION: There is colonic diverticulosis without diverticulitis. Bilateral nonobstructing renal calculi. No si gnificant adverse change compared to the old exam.
[2022-11-18] MEDS ORDERED: KETOROLAC 15 MG/ML 1 ML VIAL IVP STA (01:03)
[2022-11-18] MEDS ORDERED: MORPHINE SULFATE 4 MG/ML SYRINGE IVP STA (01:03)
[2022-11-18 01:15] VITALS: BP 145/83; PULSE 85
[2022-11-18 01:57] LABS: Appearance,Urine Clear (Clear); Bilirubin,Urine Negative (Negative); Blood,Urine Negative (Negative); Color,Urine Light Yellow; Glucose,Urine (UA) 4+ (Negative); Ketones,Urine Negative (Negative); Leukocyte Esterase,Urine Large (Negative); Nitrite,Urine Negative (Negative); PH, Urine 7.5 (5.0-8.0); Protein,Urine Negative (Negative); RBC,Urine 1 /hpf (0-5); Specific Gravity,Urine 1.013 (1.001-1.035); Squamous Epithelial Cell,Urine 1 /hpf (0-4); Urobilinogen,Urine <2.0 mg/dL (<2.0); WBC,Urine 8 /hpf (0-5)
== END 2022-11-18 01:58 | disposition home or self-care (01) ==
LOC: EC 23:02
DX: R10.32 Left lower quadrant pain (principal); E11.9 Type 2 diabetes mellitus without complications; Z79.84 Long term (current) use of oral hypoglycemic drugs; Z79.899 Other long term (current) drug therapy; Z88.5 Allergy status to narcotic agent; Z88.8 Allergy status to other drugs, medicaments and biological substances
CPT/HCPCS: 36415; 80053; 82150; 83605; 83690; 84484; 85025; 81001; 74176; 99284; 96374; 96361 ×2; J1885

== ENCOUNTER 2023-04-01 23:48 | Emergency (ER) | payer MEDICARE ==
[2023-04-02] MEDS ORDERED: ONDANSETRON 4 MG/2 ML VIAL IVP STA (00:08)
[2023-04-02] MEDS ORDERED: SODIUM CHLORIDE 0.9% 500 ML 500 ML IV STA (00:08)
[2023-04-02] MEDS ORDERED: FAMOTIDINE 20 MG/2 ML VIAL IV STA (00:09)
--- NOTE | 2023-04-02 00:39 | ED ---
Abdominal Pain HPI - General Chief Complaint: Abdominal Pain Stated Complaint: Abdominal pain Time Seen by Provider: 04/01/23 23:54 Source: patient Mode of arrival: ambulatory Limitations: no limitations - History of Present Illness Initial Comments: Patient is a 78-year-old female presenting with chief complaint of abdominal pain. Patient states that she had upper abdominal pain that started when she laid down to go to bed this evening. She states that she did go out to dinner and drink 2 glasses of wine and eat some foods that she normally does not eat. States that the pain is improved with sitting up. She admits to a lot of belching. No nausea or vomiting. No diarrhea or constipation. No dysuria or hematuria. No fevers or chills. Surgical history includes cholecystectomy, appendectomy, hysterectomy, and sections. - Related Data Home Medications Medication Instructions Recorded Confirmed Metoprolol Tartrate [Lopressor] 25 mg PO BID 07/30/18 11/16/18 glipiZIDE [Glucotrol] 5 mg PO AC-BID 07/30/18 11/16/18 metFORMIN HCL [Glucophage] 500 mg PO BID 07/30/18 11/16/18 Previous Rx's Medication Instructions Recorded Cephalexin [Keflex] 500 mg PO Q6HR 5 Days #12 cap 11/16/18 Cephalexin [Keflex] 500 mg PO Q12HR 7 Days #14 cap 04/02/23 Allergies Allergy/AdvReac Type Severity Reaction Status Date / Time phenylephrine AdvReac Swelling Verified 04/01/23 23:53 NARCOTICS AdvReac Vomiting Uncoded 04/01/23 23:53 Review of Systems ROS Statement: Those systems with pertinent positive or pertinent negative responses have been documented in the HPI. ROS Other: All systems not noted in ROS Statement are negative. Past Medical History Past Medical History: Diabetes Mellitus Additional Past Medical History / Comment(s): IRREGULAR HEART RATE History of Any Multi-Drug Resistant Organisms: None Reported Past Surgical History: Appendectomy, Section, Cholecystectomy, Hysterectomy, Orthopedic Surgery, Tonsillectomy Additional Past Surgical History / Comment(s): 2 WRIST SURGERIES LEFT , colonoscopy Past Psychological History: No Psychological Hx Reported Smoking Status: Former smoker Past Alcohol Use History: Rare Past Drug Use History: None Reported General Exam Limitations: no limitations General appearance: alert, in no apparent distress Head exam: Present: atraumatic, normocephalic, normal inspection Eye exam: Present: normal appearance, EOMI. Absent: scleral icterus, periorbital swelling Neck exam: Present: normal inspection, full ROM Respiratory exam: Present: normal lung sounds bilaterally. Absent: respiratory distress, wheezes, rales, rhonchi, stridor Cardiovascular Exam: Present: regular rate, normal rhythm, normal heart sounds. Absent: systolic murmur, diastolic murmur, rubs, gallop, clicks GI/Abdominal exam: Present: soft. Absent: distended, tenderness, guarding, rebound, rigid Neurological exam: Present: alert, oriented X3, CN II-XII intact Psychiatric exam: Present: normal affect, normal mood Skin exam: Present: warm, dry, intact, normal color. Absent: rash Course Vital Signs 04/01/23 04/02/23 23:49 02:04 Temperature 97.8 F 98.2 F Pulse Rate 102 H 89 Respiratory 20 16 Rate Blood Pressure 152/80 115/79 O2 Sat by Pulse 95 97 Oximetry Medical Decision Making - Medical Decision Making EKG: Sinus rhythm, ventricular rate 96. OH interval 165. QRS 82. QT 336. QTc 389. No ischemic changes. Interpreted by me. Was pt. sent in by a medical professional or institution (, PA, BOTTLE CASER, urgent care, hospital, or halfway...) When possible be specific @ -No Did you speak to anyone other than the patient for history (EMS, parent, family, police, friend...)? What history was obtained from this source @ -No Did you review nursing and triage notes (agree or disagree)? Why? @ -I reviewed and agree with nursing and triage notes Were old charts reviewed (outside hosp., previous admission, EMS record, old EKG, old radiological studies, urgent care reports/EKG's, halfway records)? Report findings @ -No old charts were reviewed Differential Diagnosis (chest pain, altered mental status, abdominal pain women, abdominal pain men, vaginal bleeding, weakness, fever, dyspnea, syncope, headache, dizziness, GI bleed, back pain, seizure, CVA, palpatations, mental health, musculoskeletal)? @ -MDM Differential Abdominal Pain Women: Appendicitis, Cholecystitis, diverticulosis, ischemic bowel, pancreatitis, hepatitis, UTI, gastroenteritis, AAA, incarcerated hernia, bowel obstruction, constipation, inflammatory bowel, hepatitis, peptic ulcer disease, splenic infarction, perforated viscus, vulvitis, ovarian torsion, PID, kidney stone, placenta abruption... This is not meant to be an all-inclusive list EKG interpreted by me (3pts min.). @ -As above X-rays interpreted by me (1pt min.). @ -None done CT interpreted by me (1pt min.). @ -None done U/S interpreted by me (1pt. min.). @ -None done What testing was considered but not performed or refused? (CT, X-rays, U/S, labs)? Why? @ -None What meds were considered but not given or refused? Why? @ -None Did you discuss the management of the patient with other professionals (professionals i.e. , PA, BOTTLE CASER, lab, RT, psych nurse, high school social studies teacher, tube cleaning operator, teacher, credit administration officer, clinical case manager)? Give summary @ -No Was smoking cessation discussed for >3mins.? @ -No Was critical care preformed (if so, how long)? @ -No Were there social determinants of health that impacted care today? How? (Homelessness, low income, unemployed, alcoholism, drug addiction, transportation, low edu. Level, literacy, decrease access to med. care, care home, rehab)? @ -No Was there de-escalation of care discussed even if they declined (Discuss DNR or withdrawal of care, Hospice)? DNR status @ -No What co-morbidities impacted this encounter? (DM, HTN, Smoking, COPD, CAD, Cancer, CVA, ARF, Chemo, Hep., AIDS, mental health diagnosis, sleep apnea, morbid obesity)? @ -None Was patient admitted / discharged? Hospital course, mention meds given and route, prescriptions, significant lab abnormalities, going to OR and other pertinent info. @ -78-year-old female presenting with chief complaint of epigastric pain that started this evening after lying down. Pain is improved with sitting up. Physical examination is unremarkable. Laboratory shows no leukocytosis or anemia. Negative troponin and EKG shows no ischemic changes. Lipase mildly elevated at 358. Urine shows erythema WBCs. Patient was educated on today's findings. Educated on GERD and UTI. Follow-up with PCP. Report back to ER with any new or worsening symptoms. Discussed return parameters and answered all questions. Patient conveyed verbal understanding and agreed to the plan. I discussed this case in detail with my attending Dr. Caicedo Undiagnosed new problem with uncertain prognosis? @ -No Drug Therapy requiring intensive monitoring for toxicity (Heparin, Nitro, Insulin, Cardizem)? @ -No Were any procedures done? @ -No Diagnosis/symptom? @ -GERD and UTI Acute, or Chronic, or Acute on Chronic? @ -Acute Uncomplicated (without systemic symptoms) or Complicated (systemic symptoms)? @ -Uncomplicated Side effects of treatment? @ -No Exacerbation, Progression, or Severe Exacerbation? @ -No Poses a threat to life or bodily function? How? (Chest pain, [place], [place], pneumonia, PE, COPD, DKA, ARF, appy, cholecystitis, CVA, Diverticulitis, Homicidal, Suicidal, threat to staff... and all critical care pts) @ -No - Lab Data Result diagrams: 04/02/23 00:29 04/02/23 00:29 Lab Results 04/02/23 04/02/23 04/02/23 Range/Units 00:29 00:29 00:29 WBC 7.9 (3.8-10.6) k/uL RBC 4.57 (3.80-5.40) m/uL Hgb 13.3 (11.4-16.0) gm/dL Hct 42.1 (34.0-46.0) % MCV 92.2 (80.0-100.0) fL MCH 29.0 (25.0-35.0) pg MCHC 31.5 (31.0-37.0) g/dL RDW 13.5 (11.5-15.5) % Plt Count 207 (150-450) k/uL MPV 7.6 Neutrophils % 64 % Lymphocytes % 22 % Monocytes % 6 % Eosinophils % 5 % Basophils % 1 % Neutrophils # 5.1 (1.3-7.7) k/uL Lymphocytes # 1.8 (1.0-4.8) k/uL Monocytes # 0.5 (0-1.0) k/uL Eosinophils # 0.4 (0-0.7) k/uL Basophils # 0.0 (0-0.2) k/uL PT 9.7 (9.0-12.0) sec INR 0.9 (<1.2) APTT 22.8 (22.0-30.0) sec Sodium 141 (137-145) mmol/L Potassium 4.2 (3.5-5.1) mmol/L Chloride 104 (98-107) mmol/L Carbon Dioxide 26 (22-30) mmol/L Anion Gap 11 mmol/L BUN 19 H (7-17) mg/dL Creatinine 0.89 (0.52-1.04) mg/dL Est GFR (CKD-EPI)AfAm 72 (>60 ml/min/1.73 sqM) Est GFR (CKD-EPI)NonAf 62 (>60 ml/min/1.73 sqM) Glucose 158 H (74-99) mg/dL Plasma Lactic Acid Daniel (0.7-2.0) mmol/L Calcium 9.1 (8.4-10.2) mg/dL Total Bilirubin 0.2 (0.2-1.3) mg/dL AST 19 (14-36) U/L ALT 18 (4-34) U/L Alkaline Phosphatase 52 (38-126) U/L Troponin I (0.000-0.034) ng/mL Total Protein 6.7 (6.3-8.2) g/dL Albumin 4.1 (3.5-5.0) g/dL Amylase 59 (30-110) U/L Lipase 358 H (23-300) U/L Urine Color Urine Appearance (Clear) Urine pH (5.0-8.0) Ur Specific [place] (1.001-1.035) Urine Protein (Negative) Urine Glucose (UA) (Negative) Urine Ketones (Negative) Urine Blood (Negative) Urine Nitrite (Negative) Urine Bilirubin (Negative) Urine Urobilinogen (<2.0) mg/dL Ur Leukocyte Esterase (Negative) Urine RBC (0-5) /hpf Urine WBC (0-5) /hpf Ur Squamous Epith Cells (0-4) /hpf 04/02/23 04/02/23 04/02/23 Range/Units 00:29 00:29 00:31 WBC (3.8-10.6) k/uL RBC (3.80-5.40) m/uL Hgb (11.4-16.0) gm/dL Hct (34.0-46.0) % MCV (80.0-100.0) fL MCH (25.0-35.0) pg MCHC (31.0-37.0) g/dL RDW (11.5-15.5) % Plt Count (150-450) k/uL MPV Neutrophils % % Lymphocytes % % Monocytes % % Eosinophils % % Basophils % % Neutrophils # (1.3-7.7) k/uL Lymphocytes # (1.0-4.8) k/uL Monocytes # (0-1.0) k/uL Eosinophils # (0-0.7) k/uL Basophils # (0-0.2) k/uL PT (9.0-12.0) sec INR (<1.2) APTT (22.0-30.0) sec Sodium (137-145) mmol/L Potassium (3.5-5.1) mmol/L Chloride (98-107) mmol/L Carbon Dioxide (22-30) mmol/L Anion Gap mmol/L BUN (7-17) mg/dL Creatinine (0.52-1.04) mg/dL Est GFR (CKD-EPI)AfAm (>60 ml/min/1.73 sqM) Est GFR (CKD-EPI)NonAf (>60 ml/min/1.73 sqM) Glucose (74-99) mg/dL Plasma Lactic Acid Daniel 1.5 (0.7-2.0) mmol/L Calcium (8.4-10.2) mg/dL Total Bilirubin (0.2-1.3) mg/dL AST (14-36) U/L ALT (4-34) U/L Alkaline Phosphatase (38-126) U/L Troponin I <0.012 (0.000-0.034) ng/mL Total Protein (6.3-8.2) g/dL Albumin (3.5-5.0) g/dL Amylase (30-110) U/L Lipase (23-300) U/L Urine Color Light Yellow Urine Appearance Clear (Clear) Urine pH 7.5 (5.0-8.0) Ur Specific [place] 1.024 (1.001-1.035) Urine Protein Negative (Negative) Urine Glucose (UA) 4+ H (Negative) Urine Ketones Negative (Negative) Urine Blood Negative (Negative) Urine Nitrite Negative (Negative) Urine Bilirubin Negative (Negative) Urine Urobilinogen <2.0 (<2.0) mg/dL Ur Leukocyte Esterase Moderate H (Negative) Urine RBC 2 (0-5) /hpf Urine WBC 39 H (0-5) /hpf Ur Squamous Epith Cells <1 (0-4) /hpf Disposition Clinical Impression: GERD (gastroesophageal reflux disease), UTI (urinary tract infection) Disposition: HOME SELF-CARE Condition: Good Instructions (If sedation given, give patient instructions): GERD (Gastroesophageal Reflux Disease) in Children (ED), Diet for Stomach Ulcers and Gastritis (ED), Urinary Tract Infection in Women (ED) Additional Instructions: Follow-up with PCP. Report back to ER with any new or worsening symptoms. Prescriptions: Cephalexin [Keflex] 500 mg PO Q12HR 7 Days #14 cap Is patient prescribed a controlled substance at d/c from ED?: No Referrals: Silvino Joaquin MD [Primary Care Provider] - 1-2 days Time of Disposition: 01:56
[2023-04-02 00:49] LABS: Basophils % (A) 1 %; Eosinophils # (A) 0.4 k/uL (0-0.7); Eosinophils % (A) 5 %; HCT 42.1 % (34.0-46.0); HGB 13.3 gm/dL (11.4-16.0); Lymphocytes # (A) 1.8 k/uL (1.0-4.8); Lymphocytes % (A) 22 %; MCHC 31.5 g/dL (31.0-37.0); MCV 92.2 fL (80.0-100.0); Mean Platelet Volume 7.6; Monocytes # (A) 0.5 k/uL (0-1.0); Monocytes % (A) 6 %; Neutrophils # (A) 5.1 k/uL (1.3-7.7); Neutrophils % (A) 64 %; Platelet Count 207 k/uL (150-450); RBC 4.57 m/uL (3.80-5.40); RDW 13.5 % (11.5-15.5); WBC 7.9 k/uL (3.8-10.6)
[2023-04-02 00:56] LABS: Appearance,Urine Clear (Clear); Bilirubin,Urine Negative (Negative); Blood,Urine Negative (Negative); Color,Urine Light Yellow; Glucose,Urine (UA) 4+ (Negative); Ketones,Urine Negative (Negative); Leukocyte Esterase,Urine Moderate (Negative); Nitrite,Urine Negative (Negative); PH, Urine 7.5 (5.0-8.0); Protein,Urine Negative (Negative); RBC,Urine 2 /hpf (0-5); Specific Gravity,Urine 1.024 (1.001-1.035); Squamous Epithelial Cell,Urine <1 /hpf (0-4); Urobilinogen,Urine <2.0 mg/dL (<2.0); WBC,Urine 39 /hpf (0-5)
[2023-04-02 01:01] LABS: ALT 18 U/L (4-34); AST 19 U/L (14-36); African American GFR (CKD) 72 (>60 ml/min/1.73 sqM); Albumin 4.1 g/dL (3.5-5.0); Alkaline Phosphatase 52 U/L (38-126); Amylase 59 U/L (30-110); Anion Gap 11 mmol/L; Blood Urea Nitrogen 19 mg/dL (7-17); Calcium 9.1 mg/dL (8.4-10.2); Carbon Dioxide 26 mmol/L (22-30); Chloride 104 mmol/L (98-107); Glucose 158 mg/dL (74-99); INR 0.9 (<1.2); Lipase 358 U/L (23-300); Non-African American GFR(CKD) 62 (>60 ml/min/1.73 sqM); Partial Thromboplastin Time 22.8 sec (22.0-30.0); Potassium 4.2 mmol/L (3.5-5.1); Prothrombin Time 9.7 sec (9.0-12.0); Sodium 141 mmol/L (137-145); Total Bilirubin 0.2 mg/dL (0.2-1.3); Total Protein 6.7 g/dL (6.3-8.2)
[2023-04-02 02:05] VITALS: BP 115/79; PULSE 89; RESP 16; TEMP 98.2
== END 2023-04-02 02:05 | disposition home or self-care (01) ==
LOC: EC 23:48
DX: N39.0 Urinary tract infection, site not specified (principal); K21.9 Gastro-esophageal reflux disease without esophagitis; E11.9 Type 2 diabetes mellitus without complications; Z79.84 Long term (current) use of oral hypoglycemic drugs; Z79.899 Other long term (current) drug therapy; Z87.891 Personal history of nicotine dependence; Z88.5 Allergy status to narcotic agent; Z90.49 Acquired absence of other specified parts of digestive tract
CPT/HCPCS: 36415; 93005; 80053; 82150; 83605; 83690; 84484; 85025; 85610; 85730; 81001; 99284; 96374; 96375; 96361; J2405

== ENCOUNTER 2023-06-01 03:54 | Emergency (ER) | payer MEDICARE ==
[2023-06-01 04:05] VITALS: RESP 18; TEMP 98
[2023-06-01] MEDS ORDERED: SODIUM CHLORIDE 0.9% 500 ML 500 ML IV STA (04:22)
--- NOTE | 2023-06-01 04:27 | ED ---
General Adult HPI - General Chief complaint: Abdominal Pain Stated complaint: left side pain Time Seen by Provider: 06/01/23 04:15 Source: patient Mode of arrival: ambulatory Limitations: no limitations - History of Present Illness Initial comments: This patient is 78-year-old woman who presents to have evaluation of pains that she states feels like spasms. She indicates the lateral aspect of the torso. She indicates the upper abdomen and chest wall. She states she was in bed trying sleep and she woke with spasm. Since then she has had recurring spasms they are sometimes provoked with movement. They last a few seconds up to a minute. She states that when they come on she can't move. She does note that she had done a fair amount of activity around the house yesterday but she does not recall one specific injury. Patient does not have any associated symptoms. No fever or chills. No dyspnea. No nausea or vomiting. No change in urination or bowel movements. Onset/Timin -: hour(s) Location: chest, abdomen Radiation: non-radiation Quality: other (Spasms) Consistency: intermittent Improves with: none Worsens with: movement Associated Symptoms: denies other symptoms Treatments Prior to Arrival: none - Related Data Home Medications Medication Instructions Recorded Confirmed Metoprolol Tartrate [Lopressor] 25 mg PO BID 07/30/18 11/16/18 glipiZIDE [Glucotrol] 5 mg PO AC-BID 07/30/18 11/16/18 metFORMIN HCL [Glucophage] 500 mg PO BID 07/30/18 11/16/18 Previous Rx's Medication Instructions Recorded Cephalexin [Keflex] 500 mg PO Q6HR 5 Days #12 cap 11/16/18 Cephalexin [Keflex] 500 mg PO Q12HR 7 Days #14 cap 04/02/23 diazePAM [Valium] 5 mg PO Q8HR PRN 3 Days #12 tab 06/01/23 Allergies Allergy/AdvReac Type Severity Reaction Status Date / Time phenylephrine AdvReac Swelling Verified 06/01/23 04:05 NARCOTICS AdvReac Vomiting Uncoded 06/01/23 04:05 Review of Systems ROS Statement: Those systems with pertinent positive or pertinent negative responses have been documented in the HPI. ROS Other: All systems not noted in ROS Statement are negative. Constitutional: Denies: fever, chills, weakness Respiratory: Denies: cough, dyspnea Cardiovascular: Denies: chest pain, palpitations, edema Gastrointestinal: Denies: abdominal pain, nausea, vomiting Genitourinary: Denies: dysuria, hematuria Musculoskeletal: Denies: back pain Skin: Denies: rash Neurological: Denies: headache, weakness, numbness Past Medical History Past Medical History: Diabetes Mellitus Additional Past Medical History / Comment(s): IRREGULAR HEART RATE History of Any Multi-Drug Resistant Organisms: None Reported Past Surgical History: Appendectomy, Section, Cholecystectomy, Hysterectomy, Orthopedic Surgery, Tonsillectomy Additional Past Surgical History / Comment(s): 2 WRIST SURGERIES LEFT , colonoscopy Past Psychological History: No Psychological Hx Reported Smoking Status: Former smoker Past Alcohol Use History: Rare Past Drug Use History: None Reported General Exam Limitations: no limitations General appearance: alert, in no apparent distress Head exam: Present: atraumatic, normocephalic Eye exam: Present: normal appearance. Absent: scleral icterus, conjunctival injection Neck exam: Present: normal inspection Respiratory exam: Present: normal lung sounds bilaterally. Absent: respiratory distress, wheezes, rales, rhonchi, stridor Cardiovascular Exam: Present: regular rate, normal rhythm, normal heart sounds. Absent: systolic murmur, diastolic murmur, rubs, gallop GI/Abdominal exam: Present: soft. Absent: distended, tenderness, guarding, rebound, rigid, mass Extremities exam: Present: normal inspection, normal capillary refill. Absent: pedal edema, calf tenderness Back exam: Present: normal inspection. Absent: CVA tenderness (R), CVA tenderness (L) Neurological exam: Present: alert Skin exam: Present: warm, dry, intact, normal color. Absent: rash Course Vital Signs 06/01/23 06/01/23 04:02 05:21 Temperature 98 F Pulse Rate 91 72 Respiratory 18 18 Rate Blood Pressure 138/77 108/65 O2 Sat by Pulse 98 97 Oximetry Medical Decision Making - Medical Decision Making Was pt. sent in by a medical professional or institution (, PA, SOCIAL MEDIA ASSISTANT, urgent care, hospital, or residential...) When possible be specific @ -[No] Did you speak to anyone other than the patient for history (EMS, parent, family, police, friend...)? What history was obtained from this source @ -[No] Did you review nursing and triage notes (agree or disagree)? Why? @ -[I reviewed and agree with nursing and triage notes] Were old charts reviewed (outside hosp., previous admission, EMS record, old EKG, old radiological studies, urgent care reports/EKG's, residential records)? Report findings @ -[No old charts were reviewed] Differential Diagnosis (chest pain, altered mental status, abdominal pain women, abdominal pain men, vaginal bleeding, weakness, fever, dyspnea, syncope, headache, dizziness, GI bleed, back pain, seizure, CVA, palpatations, mental health, musculoskeletal)? @ -[Differential Musculoskeletal Muscular strain, contusion, ligament sprain, fracture, arthritis, septic arthritis, bursitis, cellulitis, muscle spasm, nerve compression, DVT, arterial occlusion, herpes zoster, electrolyte abnormality, tumor.... This is not meant to be in all inclusive list EKG interpreted by me (3pts min.). @ -[ X-rays interpreted by me (1pt min.). @ -[None done] CT interpreted by me (1pt min.). @ -[None done] U/S interpreted by me (1pt. min.). @ -[None done] What testing was considered but not performed or refused? (CT, X-rays, U/S, labs)? Why? @ -[CT imaging was considered, but the patient is not having any red flag signs or symptoms. What meds were considered but not given or refused? Why? @ -[None] Did you discuss the management of the patient with other professionals (prof essionals i.e. , PA, SOCIAL MEDIA ASSISTANT, lab, RT, psych nurse, social science research assistant, off track betting manager, teacher, corporate security officer, case making machine operator)? Give summary @ -[No] Was smoking cessation discussed for >3mins.? @ -[No] Was critical care preformed (if so, how long)? @ -[No] Were there social determinants of health that impacted care today? How? (Homelessness, low income, unemployed, alcoholism, drug addiction, trans portation, low edu. Level, literacy, decrease access to med. care, senior living, rehab)? @ -[No] Was there de-escalation of care discussed even if they declined (Discuss DNR or withdrawal of care, Hospice)? DNR status @ -[No] What co-morbidities impacted this encounter? (DM, HTN, Smoking, COPD, CAD, Cancer, CVA, ARF, Chemo, Hep., AIDS, mental health diagnosis, sleep apnea, morbid obesity)? @ -[None] Was patient admitted / discharged? Hospital course, mention meds given and route, prescriptions, significant lab abnormalities, going to OR and other pertinent info. @ -[Patient is a 78-year-old woman presenting with spasms of the torso. The patient did have some relief of symptoms following the medication and she wanted to go home to rest. We discussed appropriate further care and follow-up as well as return parameters. Undiagnosed new problem with uncertain prognosis? @ -[No] Drug Therapy requiring intensive monitoring for toxicity (Heparin, Nitro, Insulin, Cardizem)? @ -[No] Were any procedures done? @ -[No] Diagnosis/symptom? @ -Acute muscle spasm Acute, or Chronic, or Acute on Chronic? @ -[default] Uncomplicated (without systemic symptoms) or Complicated (systemic symptoms)? @ -[Uncomplicated Side effects of treatment? @ -[No] Exacerbation, Progression, or Severe Exacerbation? @ -[No] Poses a threat to life or bodily function? How? (Chest pain, USA, OR, pneumonia, PE, COPD, DKA, ARF, appy, cholecystitis, CVA, Diverticulitis, Homicidal, Suicidal, threat to staff... and all critical care pts) @ -[No] - Lab Data Result diagrams: 06/01/23 04:35 06/01/23 04:35 Lab Results 06/01/23 06/01/23 Range/Units 04:35 04:35 WBC 7.0 (3.8-10.6) k/uL RBC 4.37 (3.80-5.40) m/uL Hgb 13.6 (11.4-16.0) gm/dL Hct 41.0 (34.0-46.0) % MCV 93.6 (80.0-100.0) fL MCH 31.2 (25.0-35.0) pg MCHC 33.3 (31.0-37.0) g/dL RDW 13.0 (11.5-15.5) % Plt Count 185 (150-450) k/uL MPV 7.4 Neutrophils % 64 % Lymphocytes % 23 % Monocytes % 6 % Eosinophils % 4 % Basophils % 1 % Neutrophils # 4.5 (1.3-7.7) k/uL Lymphocytes # 1.6 (1.0-4.8) k/uL Monocytes # 0.5 (0-1.0) k/uL Eosinophils # 0.3 (0-0.7) k/uL Basophils # 0.0 (0-0.2) k/uL Sodium 139 (137-145) mmol/L Potassium 4.3 (3.5-5.1) mmol/L Chloride 107 (98-107) mmol/L Carbon Dioxide 26 (22-30) mmol/L Anion Gap 6 mmol/L BUN 27 H (7-17) mg/dL Creatinine 1.07 H (0.52-1.04) mg/dL Est GFR (CKD-EPI)AfAm 58 (>60 ml/min/1.73 sqM) Est GFR (CKD-EPI)NonAf 50 (>60 ml/min/1.73 sqM) Glucose 126 H (74-99) mg/dL Calcium 9.1 (8.4-10.2) mg/dL Magnesium 1.9 (1.6-2.3) mg/dL Total Bilirubin 0.4 (0.2-1.3) mg/dL AST 21 (14-36) U/L ALT 15 (4-34) U/L Alkaline Phosphatase 53 (38-126) U/L C-Reactive Protein <0.5 (<1.0) mg/dL Total Protein 6.7 (6.3-8.2) g/dL Albumin 3.9 (3.5-5.0) g/dL Disposition Clinical Impression: Muscle spasm Disposition: HOME SELF-CARE Condition: Good Instructions (If sedation given, give patient instructions): Muscle Spasm (ED) Prescriptions: diazePAM [Valium] 5 mg PO Q8HR PRN 3 Days #12 tab PRN Reason: Spasms Is patient prescribed a controlled substance at d/c from ED?: Yes When asked, does pt state using other controlled substances?: No If prescribed controlled substance>3 days was MAPS reviewed?: Prescribed <3 Days Referrals: Silvino Joaquin MD [Primary Care Provider] - 1-2 days
[2023-06-01 04:55] LABS: ALT 15 U/L (4-34); AST 21 U/L (14-36); African American GFR (CKD) 58 (>60 ml/min/1.73 sqM); Albumin 3.9 g/dL (3.5-5.0); Alkaline Phosphatase 53 U/L (38-126); Anion Gap 6 mmol/L; Blood Urea Nitrogen 27 mg/dL (7-17); C Reactive Protein <0.5 mg/dL (<1.0); Calcium 9.1 mg/dL (8.4-10.2); Carbon Dioxide 26 mmol/L (22-30); Chloride 107 mmol/L (98-107); Glucose 126 mg/dL (74-99); Magnesium 1.9 mg/dL (1.6-2.3); Non-African American GFR(CKD) 50 (>60 ml/min/1.73 sqM); Potassium 4.3 mmol/L (3.5-5.1); Sodium 139 mmol/L (137-145); Total Bilirubin 0.4 mg/dL (0.2-1.3); Total Protein 6.7 g/dL (6.3-8.2)
[2023-06-01 04:59] LABS: Basophils % (A) 1 %; Eosinophils # (A) 0.3 k/uL (0-0.7); Eosinophils % (A) 4 %; HGB 13.6 gm/dL (11.4-16.0); Lymphocytes # (A) 1.6 k/uL (1.0-4.8); Lymphocytes % (A) 23 %; MCH 31.2 pg (25.0-35.0); MCHC 33.3 g/dL (31.0-37.0); MCV 93.6 fL (80.0-100.0); Mean Platelet Volume 7.4; Monocytes # (A) 0.5 k/uL (0-1.0); Monocytes % (A) 6 %; Neutrophils # (A) 4.5 k/uL (1.3-7.7); Neutrophils % (A) 64 %; Platelet Count 185 k/uL (150-450); RBC 4.37 m/uL (3.80-5.40)
[2023-06-01 05:32] VITALS: BP 108/65; PULSE 72
== END 2023-06-01 05:33 | disposition home or self-care (01) ==
LOC: EC 03:54
DX: M62.838 Other muscle spasm (principal); E11.9 Type 2 diabetes mellitus without complications; Z79.84 Long term (current) use of oral hypoglycemic drugs; Z88.5 Allergy status to narcotic agent; Z88.8 Allergy status to other drugs, medicaments and biological substances; Z87.891 Personal history of nicotine dependence; Z90.49 Acquired absence of other specified parts of digestive tract
CPT/HCPCS: 99284; 96374; 96361; 36415; 80053; 83735; 85025; 86140; J3360

== ENCOUNTER 2023-10-12 09:16 | Emergency (ER) | payer MEDICARE ==
[2023-10-12 09:30] VITALS: RESP 18
--- NOTE | 2023-10-12 09:54 | ED ---
Extremity Problem HPI - General Chief complaint: Extremity Problem,Nontraumatic Stated complaint: pain behind right knee Time Seen by Provider: 10/12/23 09:23 Source: patient, RN notes reviewed Mode of arrival: ambulatory Limitations: no limitations - History of Present Illness Initial comments: This is a 70-year-old female who presents to the emergency department for pain behind the right knee. States that this started a few days ago but seems to be getting worse. Denies any injuries. Her noted an enlarged and discolored vein to this area. She is not taking anything for her pain at this time. Denies any history of DVTs. Not taking any blood thinners. Denies any chest pain or shortness of breath. She is still able to ambulate. - Related Data Home Medications Medication Instructions Recorded Confirmed Metoprolol Tartrate [Lopressor] 25 mg PO BID 07/30/18 11/16/18 glipiZIDE [Glucotrol] 5 mg PO AC-BID 07/30/18 11/16/18 metFORMIN HCL [Glucophage] 500 mg PO BID 07/30/18 11/16/18 Previous Rx's Medication Instructions Recorded Cephalexin [Keflex] 500 mg PO Q6HR 5 Days #12 cap 11/16/18 Cephalexin [Keflex] 500 mg PO Q12HR 7 Days #14 cap 04/02/23 diazePAM [Valium] 5 mg PO Q8HR PRN 3 Days #12 tab 06/01/23 Allergies Allergy/AdvReac Type Severity Reaction Status Date / Time phenylephrine AdvReac Swelling Verified 10/12/23 09:19 NARCOTICS AdvReac Vomiting Uncoded 10/12/23 09:19 Review of Systems ROS Statement: Those systems with pertinent positive or pertinent negative responses have been documented in the HPI. ROS Other: All systems not noted in ROS Statement are negative. Past Medical History Past Medical History: Diabetes Mellitus Additional Past Medical History / Comment(s): IRREGULAR HEART RATE History of Any Multi-Drug Resistant Organisms: None Reported Past Surgical History: Appendectomy, Section, Cholecystectomy, Hysterectomy, Orthopedic Surgery, Tonsillectomy Additional Past Surgical History / Comment(s): 2 WRIST SURGERIES LEFT , colonoscopy Past Psychological History: No Psychological Hx Reported Smoking Status: Former smoker Past Alcohol Use History: Rare Past Drug Use History: None Reported General Exam Limitations: no limitations General appearance: alert, in no apparent distress Head exam: Present: atraumatic, normocephalic, normal inspection Respiratory exam: Present: normal lung sounds bilaterally. Absent: respiratory distress, wheezes, rales, rhonchi, stridor Cardiovascular Exam: Present: regular rate, normal rhythm, normal heart sounds. Absent: systolic murmur, diastolic murmur, rubs, gallop, clicks Extremities exam: Present: other (Tenderness to palpation behind the right patella in the popliteal fossa. No overlying swelling or deformities. No erythema or increased heat.) Neurological exam: Present: alert, oriented X3, CN II-XII intact Psychiatric exam: Present: normal affect, normal mood Skin exam: Present: warm, dry, intact, normal color. Absent: rash Course Vital Signs 10/12/23 10/12/23 09:17 11:49 Temperature 97.5 F L 98.1 F Pulse Rate 94 68 Respiratory 18 18 Rate Blood Pressure 151/79 146/78 O2 Sat by Pulse 96 97 Oximetry Medical Decision Making - Medical Decision Making This is a 78-year-old female who presents to the emergency department for pain behind her right knee. Was pt. sent in by a medical professional or institution? @ -No Did you speak to anyone other than the patient for history? @ -No Did you review nursing and triage notes? @ -Yes, and I agree, it is accurate with regards to the patient's symptoms. Were old charts reviewed? @ -No Differential Diagnosis? @ -Differential Knee Pain: Winter's cyst, bursitis, DVT, injury, this is not meant to be an all-inclusive list. EKG interpreted by me (3pts min.)? @ -Not obtained X-rays interpreted by me (1pt min.)? @ -Not obtained CT interpreted by me (1pt min.)? @ -Not obtained U/S interpreted by me (1pt. min.)? @ -Duplex US of the right lower extremity obtained. My interpretation identifies no evidence of a DVT. What testing was considered but not performed? (CT, X-rays, U/S, labs)? Why? @ -None What meds were considered but not given? Why? @ -I offered pain medication, however the patient declined. Did you discuss the management of the patient with other professionals? @ -No Did you reconcile home meds? @ -No Was smoking cessation discussed for >3mins.? @ -No Was critical care preformed (if so, how long)? @ -No Were there social determinants of health that impacted care today? How? (Homelessness, low income, unemployed, alcoholism, drug addiction, transportation, low edu. Level, literacy, decrease access to med. care, snf, rehab)? @ -No Was there de-escalation of care discussed even if they declined? (Discuss DNR or withdrawal of care, Hospice)? @ -No What co-morbidities impacted this encounter? (DM, HTN, Smoking, COPD, CAD, Cancer, CVA, Hep., AIDS, mental health diagnosis, sleep apnea, morbid obesity)? @ -None Was patient admitted / discharged? @ -Discharged. Duplex ultrasound of the right lower extremity obtained revealing a Winter's cyst without evidence of a DVT. Patient declined the need for any pain medication in the emergency department. Advised anti- inflammatories such as ibuprofen, elevation, and warm compresses. Patient discharged home in stable condition with instructions to follow-up with her primary care provider. Undiagnosed new problem with uncertain prognosis? @ -None Drug Therapy requiring intensive monitoring for toxicity (Heparin, Nitro, Insulin, Cardizem)? @ -None Were any procedures done? @ -None Diagnosis/symptom? @ -Winter's Cyst Acute, or Chronic, or Acute on Chronic? @ -Acute Uncomplicated (without systemic symptoms) or Complicated (systemic symptoms)? @ -Uncomplicated Side effects of treatment? @ -None Exacerbation, Progression, or Severe Exacerbation] @ -Not applicable Poses a threat to life or bodily function? @ -No Return precautions reviewed in depth, the patient is instructed to return to the emergency department with any new, worsening, or concerning symptoms. Patient verbalized understanding. This case was discussed in detail with the attending ED physician, Dr. Helm. Presentation, findings, and treatment plan discussed in detail as well. - Radiology Data Radiology results: report reviewed, image reviewed Disposition Clinical Impression: Bakers cyst Disposition: HOME SELF-CARE Instructions (If sedation given, give patient instructions): Winter Cyst (ED) Additional Instructions: Return to the emergency department with any new, worsening, or concerning symptoms. Alternate with ibuprofen and Tylenol as needed for pain relief. Keep the leg elevated. Alternate with ice and heat. You can also use compression such as with an Ha bandage or knee brace. Follow up with your primary care provider in 1-2 days. Is patient prescribed a controlled substance at d/c from ED?: No Referrals: Silvino Joaquin MD [Primary Care Provider] - 1-2 days
--- NOTE | 2023-10-12 10:56 | US ---
EXAMINATION TYPE: US venous doppler duplex LE RT DATE OF EXAM: 10/12/2023 10:43 AM COMPARISON: NONE CLINICAL INDICATION: Female, 78 years old with history of Pain behind right knee; post knee pain x a few weeks, worse last night SIDE PERFORMED: Right TECHNIQUE: The lower extremity deep venous system is examined utilizing real time linear array sonog adrien with graded compression, doppler sonography and color-flow sonography. VESSELS IMAGED: Common Femoral Vein Deep Femoral Vein Greater Saphenous Vein * Femoral Vein Popliteal Vein Small Saphenous Vein * Proximal Calf Veins (* superficial vessels) Right Leg: Negative for DVT, Grayscale, color doppler, spectral doppler imaging performed of the sarah p veins of the lower extremities. There is normal flow, compressibility, vascular waveforms. there is a 4.1x1.5x1.4cm complex fluid collection medial to the popliteal vessels IMPRESSION: 1. No evidence for deep vein thrombosis. 2. Popliteal fossa cyst.
[2023-10-12 12:10] VITALS: BP 146/78; PULSE 68; TEMP 98.1
== END 2023-10-12 12:41 | disposition home or self-care (01) ==
LOC: EC 09:16
DX: M71.21 Synovial cyst of popliteal space [Baker], right knee (principal); E11.9 Type 2 diabetes mellitus without complications; Z87.891 Personal history of nicotine dependence; Z79.84 Long term (current) use of oral hypoglycemic drugs; Z88.8 Allergy status to other drugs, medicaments and biological substances
CPT/HCPCS: 99283

== ENCOUNTER 2023-10-22 09:27 | Emergency (ER) | payer MEDICARE ==
[2023-10-22 09:44] VITALS: RESP 18; TEMP 97.9
--- NOTE | 2023-10-22 10:04 | ED ---
General Adult HPI - General Chief complaint: Fall Stated complaint: fall Time Seen by Provider: 10/22/23 09:47 Source: patient, RN notes reviewed Mode of arrival: ambulatory Limitations: no limitations - History of Present Illness Initial comments: 78-year-old female presented to the emergency room today with a chief complaint of a slip and fall. Patient does admit that she went out to her back porch she was having some work on her house when she slipped on some ice falling down onto the left side. States she did not strike her head. Did not lose conscious. Denies any blood thinners. Does admit to pain to the left wrist, elbow, shoulder. She states she has good range of motion slightly decreased at the wrist. Patient does admit to bruises to the back of the elbow. Denies any other complaints or any other symptoms. - Related Data Home Medications Medication Instructions Recorded Confirmed Metoprolol Tartrate [Lopressor] 25 mg PO BID 07/30/18 11/16/18 glipiZIDE [Glucotrol] 5 mg PO AC-BID 07/30/18 11/16/18 metFORMIN HCL [Glucophage] 500 mg PO BID 07/30/18 11/16/18 Previous Rx's Medication Instructions Recorded Cephalexin [Keflex] 500 mg PO Q6HR 5 Days #12 cap 11/16/18 Cephalexin [Keflex] 500 mg PO Q12HR 7 Days #14 cap 04/02/23 diazePAM [Valium] 5 mg PO Q8HR PRN 3 Days #12 tab 06/01/23 Allergies Allergy/AdvReac Type Severity Reaction Status Date / Time phenylephrine AdvReac Swelling Verified 10/22/23 09:36 NARCOTICS AdvReac Vomiting Uncoded 10/22/23 09:36 Review of Systems ROS Statement: Those systems with pertinent positive or pertinent negative responses have been documented in the HPI. ROS Other: All systems not noted in ROS Statement are negative. Past Medical History Past Medical History: Diabetes Mellitus Additional Past Medical History / Comment(s): IRREGULAR HEART RATE History of Any Multi-Drug Resistant Organisms: None Reported Past Surgical History: Appendectomy, Section, Cholecystectomy, Hysterectomy, Orthopedic Surgery, Tonsillectomy Additional Past Surgical History / Comment(s): 2 WRIST SURGERIES LEFT , colonoscopy Past Psychological History: No Psychological Hx Reported Smoking Status: Former smoker Past Alcohol Use History: Rare Past Drug Use History: None Reported General Exam - General Exam Comments Initial Comments: General: The patient is awake and alert, in no distress, and does not appear acutely ill. Neck: The neck is supple, there is no tenderness or JVD. Cardiovascular: There is a regular rate and rhythm. No murmur, rub or gallop is appreciated. Respiratory: Lungs are clear to auscultation, respirations are non-labored, breath sounds are equal. No wheezes, stridor, rales, or rhonchi. Musculoskeletal: Patient back to the left elbow. Normal appearance of the shoulder, wrist. Patient shows good range of motion all these areas. Strength is 5/5. Does have tenderness over the distal radius and ulna. Mild tenderness to the posterior elbow. Specific tenderness to left shoulder. Radial pulse 2+ for sensations intact. Neurological: A&O x 3. CN II-XII intact, There are no obvious motor or sensory deficits. Coordination appears grossly intact. Speech is normal. Skin: Skin is warm and dry and no rashes or lesions are noted. Psychiatric: Normal mood and affect. Limitations: no limitations Course Vital Signs 10/22/23 09:34 Temperature 97.9 F Pulse Rate 92 Respiratory 18 Rate Blood Pressure 160/90 O2 Sat by Pulse 97 Oximetry Medical Decision Making - Medical Decision Making History was obtained from patient/Nurse/ Initial assessment and chief complaint: Wrist pain, elbow pain, shoulder pain Chronic conditions affecting care: Diabetes Social determinants affecting care: None Differential diagnosis included, but not limited to: Fracture, dislocation, sprain, contusion Any imaging that may have been performed was also reviewed. I did an independent interpretation of the patient's imaging. My interpretation of x-rays of the left shoulder, left elbow, left wrist were reviewed and were unremarkable for any fracture dislocation. 78-year-old female who had a fall on the ice earlier today. Did have x-rays which were unremarkable. Official read was reviewed and did show a concern for possible fracture and recommended a computed tomography scan. CT of the left wrist was obtained and was negative. Results were discussed with the patient. Advised ice elevate the affected areas. Advised follow-up with orthopedics if symptoms persist. Advised Tylenol/Motrin as needed. The patient states understanding and is agreement with the plan. Disposition Clinical Impression: Fall, Wrist sprain, Elbow contusion Disposition: HOME SELF-CARE Condition: Good Instructions (If sedation given, give patient instructions): Wrist Sprain (ED) Is patient prescribed a controlled substance at d/c from ED?: No Referrals: Silvino Joaquin MD [Primary Care Provider] - 1-2 days Time of Disposition: 12:51
--- NOTE | 2023-10-22 11:17 | XR ---
EXAMINATION TYPE: XR wrist complete LT DATE OF EXAM: 10/22/2023 11:08 AM CLINICAL INDICATION:Female, 78 years old with history of fall; H COMPARISON: None TECHNIQUE: XR wrist complete LT; examined in the Frontal, navicular, lateral, and oblique. FINDINGS/IMPRESSION: * Irregular appearance of the distal radius. Given the soft tissue swelling a CT may be of benefit t o rule out underlying occult fracture. * Multifocal degeneration changes throughout the wrist.
--- NOTE | 2023-10-22 11:18 | XR ---
EXAMINATION TYPE: XR elbow complete LT DATE OF EXAM: 10/22/2023 11:08 AM CLINICAL INDICATION:Female, 78 years old with history of fall; COMPARISON: None TECHNIQUE: XR elbow complete LT; elbow was examined in AP, lateral, and oblique projections. FINDINGS: No evidence of any acute osseous pathology, joint dislocation, or soft tissue swelling is n oted. No evidence of joint effusion is present. IMPRESSION: No evidence of acute fracture.
--- NOTE | 2023-10-22 11:23 | XR ---
EXAMINATION TYPE: XR shoulder complete LT DATE OF EXAM: 10/22/2023 11:08 AM CLINICAL INDICATION:Female, 78 years old with history of fall; COMPARISON: None TECHNIQUE: XR shoulder complete LT; shoulder was examined in AP, internally rotated and scapular Y p rojections. FINDINGS: No evidence of acute osseous pathology, joint dislocation, or soft tissue swelling. The remaining po rtions of the visualized chest are unremarkable. IMPRESSION: No acute osseous pathology.
--- NOTE | 2023-10-22 12:32 | CT ---
EXAMINATION TYPE: CT wrist LT wo con DATE OF EXAM: 10/22/2023 COMPARISON: Same day wrist x-ray HISTORY: Fall injury with pain. Inconclusive x-ray. Automated exposure control for dose reduction was used. FINDINGS: Linear calcification or ossification distal to the ulna could reflect calcification along the ligamen t or tendon versus avulsion type fracture versus dystrophic calcification. Dystrophic calcification i s favored as there is additional linear density in the proximal carpal rows. Distal ulna shows well-d efined oval 7 mm lucent lesion along the volar aspect with some adjacent irregular calcifications. No definitive acute displaced fracture. Carpal joint spaces are preserved. Mild subcutaneous edema jameson g the plantar surface of the proximal hand is present. IMPRESSION: No acute displaced fracture in the left wrist. Soft tissue presumed dystrophic calcificat ions are present.
[2023-10-22 13:18] VITALS: BP 146/76; PULSE 86
== END 2023-10-22 13:05 | disposition home or self-care (01) ==
LOC: EC 09:27
DX: S63.502A Unspecified sprain of left wrist, initial encounter (principal); S50.02XA Contusion of left elbow, initial encounter; M25.512 Pain in left shoulder; E11.9 Type 2 diabetes mellitus without complications; Z79.84 Long term (current) use of oral hypoglycemic drugs; Z88.5 Allergy status to narcotic agent; Z88.8 Allergy status to other drugs, medicaments and biological substances; Z87.891 Personal history of nicotine dependence; W00.0XXA Fall on same level due to ice and snow, initial encounter; Y92.009 Unspecified place in unspecified non-institutional (private) residence as the place of occurrence of the external cause
CPT/HCPCS: 99284

== ENCOUNTER 2024-04-21 10:18 | Observation (INO) | payer MEDICARE ==
[2024-04-21 11:08] LABS: Basophils % (A) 1 %; Eosinophils # (A) 0.3 k/uL (0-0.7); Eosinophils % (A) 5 %; HCT 41.2 % (34.0-46.0); HGB 13.8 gm/dL (11.4-16.0); Lymphocytes # (A) 1.6 k/uL (1.0-4.8); Lymphocytes % (A) 22 %; MCH 31.9 pg (25.0-35.0); MCHC 33.5 g/dL (31.0-37.0); MCV 95.1 fL (80.0-100.0); Mean Platelet Volume 9.3; Monocytes # (A) 0.5 k/uL (0-1.0); Monocytes % (A) 6 %; Neutrophils # (A) 4.6 k/uL (1.3-7.7); Neutrophils % (A) 65 %; Platelet Count 208 k/uL (150-450); RBC 4.34 m/uL (3.80-5.40); RDW 12.6 % (11.5-15.5); WBC 7.1 k/uL (3.8-10.6)
[2024-04-21 11:20] LABS: ALT 16 U/L (4-34); African American GFR (CKD) 76 (>60 ml/min/1.73 sqM); Anion Gap 6 mmol/L; Blood Urea Nitrogen 22 mg/dL (7-17); Calcium 9.7 mg/dL (8.4-10.2); Carbon Dioxide 26 mmol/L (22-30); Chloride 105 mmol/L (98-107); Glucose 127 mg/dL (74-99); Non-African American GFR(CKD) 66 (>60 ml/min/1.73 sqM); Sodium 137 mmol/L (137-145)
[2024-04-21 11:21] LABS: Albumin 4.1 g/dL (3.5-5.0); Potassium 5.2 mmol/L (3.5-5.1); Total Protein 6.7 g/dL (6.3-8.2)
[2024-04-21 11:22] LABS: AST 31 U/L (14-36); Alkaline Phosphatase 36 U/L (38-126); Magnesium 1.8 mg/dL (1.6-2.3); Total Bilirubin 0.7 mg/dL (0.2-1.3)
[2024-04-21 11:28] LABS: NT-Pro-B-Type Natriuretic Pept 73 pg/mL
--- NOTE | 2024-04-21 11:30 | XR ---
EXAMINATION TYPE: XR chest 2V DATE OF EXAM: 04/21/2024 COMPARISON: 07/30/2018 TECHNIQUE: PA and lateral views submitted. HISTORY: Chest pain FINDINGS: The lungs are clear and there is no pneumothorax, pleural effusion, or focal pneumonia. Heart size normal and no overt failure. Left basilar subsegmental consolidation. No overt failure. Mild degenera tive changes in the spine. Occasional air-fluid level left upper quadrant. IMPRESSION: 1. Left basilar atelectasis or infiltrate. 2. Within the abdomen is occasional air fluid level within the bowel correlate clinically.
[2024-04-21 12:06] LABS: INR 0.9 (<1.2); Partial Thromboplastin Time 22.5 sec (22.0-30.0)
--- NOTE | 2024-04-21 12:41 | ED ---
Chest Pain HPI - General Chief Complaint: Chest Pain Stated Complaint: chest pains Time Seen by Provider: 04/21/24 10:23 Source: patient, RN notes reviewed Mode of arrival: ambulatory Limitations: no limitations - History of Present Illness Initial Comments: 79-year-old female presents emergency department chief complaint of chest discomfort. Patient states started prior to arrival. Patient states that she does not have recurrent shortness of breath but has in the past. Patient states that she started having increasing fatigue recently in which she saw cardiology and is scheduled for stress test. Patient denies any prior cardiac stents she does have a history of diabetes. She denies fevers or chills no cough or cold- like symptoms no recent traveling no leg pain or leg swelling. - Related Data Home Medications Medication Instructions Recorded Confirmed ALPRAZolam [Xanax] 0.25 mg PO DIRECTED 04/21/24 04/21/24 Atorvastatin [Lipitor] 10 mg PO DAILY 04/21/24 04/21/24 Empagliflozin [Jardiance] 25 mg PO DAILY 04/21/24 04/21/24 Metoprolol Succinate [Metoprolol 25 mg PO DAILY 04/21/24 04/21/24 Succinate ER] Omeprazole [PriLOSEC] 20 mg PO DAILY PRN 04/21/24 04/21/24 glipiZIDE [Glucotrol] 10 mg PO AC-BID 04/21/24 04/21/24 lisinopriL [Zestril] 10 mg PO DAILY 04/21/24 04/21/24 metFORMIN HCL ER [Glucophage XR] 500 mg PO W/SUPPER 04/21/24 04/21/24 Allergies Allergy/AdvReac Type Severity Reaction Status Date / Time phenylephrine AdvReac Swelling Verified 04/21/24 11:31 NARCOTICS AdvReac Vomiting Uncoded 04/21/24 10:22 Review of Systems ROS Statement: Those systems with pertinent positive or pertinent negative responses have been documented in the HPI. ROS Other: All systems not noted in ROS Statement are negative. EKG Findings - EKG Comments: EKG Findings:: EKG performed at 10: 31 sinus rhythm rate of 84 [place] 157 QRS 85 QT/QTc 341/383 - EKG Results: EKG: interpreted by JACK Past Medical History Past Medical History: Diabetes Mellitus Additional Past Medical History / Comment(s): IRREGULAR HEART RATE History of Any Multi-Drug Resistant Organisms: None Reported Past Surgical History: Appendectomy, Section, Cholecystectomy, Hysterectomy, Orthopedic Surgery, Tonsillectomy Additional Past Surgical History / Comment(s): 2 WRIST SURGERIES LEFT , colonoscopy Past Psychological History: No Psychological Hx Reported Smoking Status: Former smoker Past Alcohol Use History: Rare Past Drug Use History: None Reported General Exam Limitations: no limitations General appearance: alert, in no apparent distress Head exam: Present: atraumatic, normocephalic, normal inspection Eye exam: Present: normal appearance, PERRL, EOMI. Absent: scleral icterus, conjunctival injection, periorbital swelling ENT exam: Present: normal exam, mucous membranes moist Neck exam: Present: normal inspection, full ROM. Absent: tenderness, meningismus, lymphadenopathy Respiratory exam: Present: normal lung sounds bilaterally. Absent: respiratory distress, wheezes, rales, rhonchi, stridor Cardiovascular Exam: Present: regular rate, normal rhythm, normal heart sounds. Absent: systolic murmur, diastolic murmur, rubs, gallop, clicks GI/Abdominal exam: Present: soft, normal bowel sounds. 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 sent in by a medical professional or institution (, PA, ENGINEERING MGR, urgent care, hospital, or care home...) When possible be specific @ -No Did you speak to anyone other than the patient for history (EMS, parent, family, police, friend...)? What history was obtained from this source @ -No Did you review nursing and triage notes (agree or disagree)? Why? @ -I reviewed and agree with nursing and triage notes Were old charts reviewed (outside hosp., previous admission, EMS record, old EKG, old radiological studies, urgent care reports/EKG's, care home records)? Report findings @ -No old charts were reviewed Differential Diagnosis (chest pain, altered mental status, abdominal pain women, abdominal pain men, vaginal bleeding, weakness, fever, dyspnea, syncope, headache, dizziness, GI bleed, back pain, seizure, CVA, palpatations, mental health, musculoskeletal)? @ -Differential Chest Pain: Stable Angina, Unstable Angina, STEMI, NSTEMI Aortic Dissection, Pneumothorax, Musculoskeletal, Esophageal Spasm GERD, Cholecystitis, Pancreatitis, Zoster, this is not meant to be an all-inclusive list. EKG interpreted by me (3pts min.). @ -As above X-rays interpreted by me (1pt min.). @ -Chest x-ray shows no acute cardiopulmonary process CT interpreted by me (1pt min.). @ -None done U/S interpreted by me (1pt. min.). @ -None done What testing was considered but not performed or refused? (CT, X-rays, U/S, labs)? Why? @ -None What meds were considered but not given or refused? Why? @ -None Did you discuss the management of the patient with other professionals (professionals i.e. , PA, ENGINEERING MGR, lab, RT, psych nurse, social media executive, meeting manager, teacher, signals officer, case liner)? Give summary @ -Patient's case discussed with Dr. Graham for admission for chest pain rule out Was smoking cessation discussed for >3mins.? @ -No Was critical care preformed (if so, how long)? @ -No Were there social determinants of health that impacted care today? How? (Homelessness, low income, unemployed, alcoholism, drug addiction, transportation, low edu. Level, literacy, decrease access to med. care, care home, rehab)? @ -No Was there de-escalation of care discussed even if they declined (Discuss DNR or withdrawal of care, Hospice)? DNR status @ -No What co-morbidities impacted this encounter? (DM, HTN, Smoking, COPD, CAD, Cancer, CVA, ARF, Chemo, Hep., AIDS, mental health diagnosis, sleep apnea, morbid obesity)? @ -None Was patient admitted / discharged? Hospital course, mention meds given and route, prescriptions, significant lab abnormalities, going to OR and other pertinent info. @ -Admitted patient presented for chest pain initial workup including CBC, D- dimer and troponin are reviewed. Patient had minimally elevated D-dimer CT was negative patient is scheduled for stress test next week will be admitted for cardiac rule out. Undiagnosed new problem with uncertain prognosis? @ -No Drug Therapy requiring intensive monitoring for toxicity (Heparin, Nitro, Insulin, Cardizem)? @ -No Were any procedures done? @ -No Diagnosis/symptom? @ -Chest pain Acute, or Chronic, or Acute on Chronic? @ -Acute Uncomplicated (without systemic symptoms) or Complicated (systemic symptoms)? @ -Complicated Side effects of treatment? @ -No Exacerbation, Progression, or Severe Exacerbation? @ -No Poses a threat to life or bodily function? How? (Chest pain, [place], [place], pneumonia, PE, COPD, DKA, ARF, appy, cholecystitis, CVA, Diverticulitis, Homicidal, Suicidal, threat to staff... and all critical care pts) @ -Yes possible underlying ACS, cardiac arrest Disposition Clinical Impression: Chest pain Disposition: ADMITTED IP TO THIS HOSP Condition: Fair Time of Disposition: 13:41
--- NOTE | 2024-04-21 13:22 | CT ---
EXAMINATION TYPE: CT chest angio for PE CT DLP: 333.2 mGycm, Automated exposure control for dose reduction was used. DATE OF EXAM: 04/21/2024 1:01 PM COMPARISON: Chest radiograph from same day. CLINICAL INDICATION:Female, 79 years old with history of chest pain,sob; Chest pain, SOB TECHNIQUE/CONTRAST: CTA scan of the thorax is performed with IV Contrast, patient injected with 100 mL of Isovue 370, MIP images are created and reviewed these are created on a separate workstation.. FINDINGS: Pulmonary Artery: There is no evidence for a filling defect within the pulmonary vasculature to sugge st acute pulmonary embolism. The pulmonary artery is of normal size. Lungs/Pleura: No evidence of focal consolidation, pleural effusion or pneumothorax. Streaky atelectas is in the lung bases. Airway: Mild bronchiectasis in the lung bases. Mild paraseptal and centrilobular emphysema. Heart: Heart is within normal limits for size. Vasculature: No evidence of aortic aneurysm. Mediastinum: No gross evidence of adenopathy. Musculoskeletal: No acute osseous abnormalities Soft Tissues/lymph nodes: Unremarkable. Lower neck: No significant findings. Upper Abdomen: No significant findings. IMPRESSION: 1. No evidence of pulmonary embolism. 2. Mild emphysema.
[2024-04-21] MEDS ORDERED: NITROGLYCERIN SL TABS 0.4 MG TAB SUBLINGUAL PRN (13:40)
[2024-04-21] MEDS: ASPIRIN 81 MG PO STA (14:14)
--- NOTE | 2024-04-21 15:39 | P.HPIM ---
History of Present Illness H&P Date: 04/21/24 History of Presenting Illness: Patient is a very pleasant 79-year-old female with a past medical history of hypertension, hyperlipidemia, and lre-[id number] diabetes mellitus. 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 Patient reports she had an EKG done and was scheduled to undergo outpatient stress testing next week. Patient reports however this morning the symptoms significantly worsened and were accompanied by an episode of extreme nausea and vomiting followed by sudden onset pain/pressure to her left anterior chest. She denies radiation of this pain or anything making pain better or worse. Patient reports she has never experienced pain like this in the past and denies having any cardiac history. She reports both of her sons had heart attacks at young ages at the age of 35 and 42 and that they were diagnosed with factor V deficiency. She reports she has never had any cardiac stents or any previously diagnosed bleeding/clotting disorders. Patient states she became very anxious when she developed chest pain and her insisted that she came to the emergency department for evaluation. Patient denies having any headache, lightheadedness, dizziness, palpitations, cough or congestion, abdominal pain or discomfort, or experiencing any numbness/tingling/weakness/swelling in her extremities. Patient currently reports pain resolved shortly after arrival to the emergency department. Vital signs upon arrival revealed blood pressure 162/95, heart rate 94, respiratory rate 18, temp 97.6 F, and SpO2 of 97% on room air. EKG was completed showing normal sinus rhythm 84 bpm with no noted T wave or ST abnormalities showing no signs of acute ischemia upon personal review and interpretation. Chest x-ray completed showing left basilar atelectasis otherwise negative for acute cardiopulmonary process labs were completed and reviewed. CBC unremarkable. BMP showing mild hyperkalemia with potassium of 5.2 but was a hemolyzed specimen otherwise showing mild prerenal azotemia with BUN of 22. Blood glucose 127. Magnesium 1.8. Liver profile showing no significant abnormalities. Troponin was less than 0.012 and proBNP was 73. D-dimer was slightly elevated at 0.78 but normal for age correction. CTA chest was negative for pulmonary embolism showing mild emphysema and bronchiectasis in the lung bases. Patient was given aspirin 324 mg p.o. x 1 dose and admitted under our services with consultation to cardiology. Review of systems: Pertinent positives and negatives as discussed in HPI, a complete review of systems was performed and all other systems are negative. Physical exam: Vital signs reviewed and stable. General: Nontoxic, no distress and appears stated age. Derm: Skin warm and dry, normal coloration for ethnicity. Head: Atraumatic, normocephalic and symmetric. Eyes: EOMs intact, no lid lag, and anicteric sclera Mouth: no lip lesions, mucus membranes moist Cardiovascular: regular rate and rhythm with normal S1S2, no murmur, positive posterior tibial pulses bilaterally, and cap refill < 2 seconds. Lungs: Respirations even, regular, and unlabored on room air. Lungs CTA bilaterally, no rhonchi, no rales, no wheezing, and no accessory muscle usage. Abdominal: soft, nontender to palpation, no guarding, no appreciable organomegaly Ext: ROM intact. No gross muscle atrophy, no edema, no contractures Neuro: Speech clear, face symmetrical and CN II-XII grossly intact with no noted focal neuro deficits Psych: Alert and oriented to person, place, time, and situation. Appropriate and pleasant affect. Assessment and Plan of Care: Chest pain, rule out acute coronary event Hypertension Hyperlipidemia -Cardiology consulted, appreciate recommendations -Telemetry monitoring -Trend troponins -Cardiac diet, NPO at midnight -Aspirin 81 mg daily, atorvastatin 10 mg daily, lisinopril 10 mg daily, and metoprolol 25 mg daily. -Lipid profile and hemoglobin A1c with a.m. labs. -Echocardiogram Diabetes mellitus with mild hyperglycemia -Hold metformin, Jardiance, and glipizide. Patient placed on glycemic protocol with NovoLog sliding scale. -Will obtain hemoglobin A1c with a.m. labs. Hyperkalemia -Secondary to hemolyzed specimen. Will continue lisinopril for now and repeat BMP with morning labs. Data and imaging reviewed: As stated above in HPI The patient is admitted with an anticipated less than 2 midnight stay for evaluation of chest pain. CODE STATUS: Full code DVT prophylaxis: Lovenox Anticipated discharge date: 24 to [address]: Home Patient was seen independently by Nurse Practitioner. This document was prepared using [employer] dictation software. Please allow for errors in occup therapist while rare they do occur. .Chintanelmer Avalos NP rendered care for this patient independently, reviewed the findings and plan as documented in the note above. I did not physically speak with or examine the patient on this date. Past Medical History Past Medical History: Diabetes Mellitus Additional Past Medical History / Comment(s): IRREGULAR HEART RATE History of Any Multi-Drug Resistant Organisms: None Reported Past Surgical History: Appendectomy, Section, Cholecystectomy, Hysterectomy, Orthopedic Surgery, Tonsillectomy Additional Past Surgical History / Comment(s): 2 WRIST SURGERIES LEFT , colonoscopy Past Psychological History: No Psychological Hx Reported Smoking Status: Former smoker Past Alcohol Use History: Rare Past Drug Use History: None Reported Medications and Allergies Home Medications Medication Instructions Recorded Confirmed Type ALPRAZolam [Xanax] 0.25 mg PO DIRECTED 04/21/24 04/21/24 History Atorvastatin [Lipitor] 10 mg PO DAILY 04/21/24 04/21/24 History Empagliflozin [Jardiance] 25 mg PO DAILY 04/21/24 04/21/24 History Metoprolol Succinate [Metoprolol 25 mg PO DAILY 04/21/24 04/21/24 History Succinate ER] Omeprazole [PriLOSEC] 20 mg PO DAILY PRN 04/21/24 04/21/24 History glipiZIDE [Glucotrol] 10 mg PO AC-BID 04/21/24 04/21/24 History lisinopriL [Zestril] 10 mg PO DAILY 04/21/24 04/21/24 History metFORMIN HCL ER [Glucophage XR] 500 mg PO W/SUPPER 04/21/24 04/21/24 History Aspirin 81 mg PO DAILY 30 Days #30 tab 04/22/24 Rx Nitroglycerin Sl Tabs [Nitrostat] 0.4 mg SUBLINGUAL Q5M PRN #25 tab 04/22/24 Rx Allergies Allergy/AdvReac Type Severity Reaction Status Date / Time phenylephrine AdvReac Swelling Verified 04/21/24 11:31 NARCOTICS AdvReac Vomiting Uncoded 04/21/24 10:22 Physical Exam Vitals: Vital Signs Temp Pulse Pulse Resp BP Pulse Ox 04/21/24 15:20 98.0 F 98 18 107/69 96 04/21/24 13:05 97.9 F 80 16 136/77 97 04/21/24 12:10 80 18 120/69 97 07/03/24 11:05 98.4 F 78 16 136/76 94 L 04/21/24 10:38 87 04/21/24 10:19 97.6 F 94 18 162/95 97 Intake and Output 04/21/24 04/21/24 04/21/24 06:59 14:59 22:59 Other: Weight 68.039 kg Results CBC & Chem 7: 04/22/24 05:25 04/22/24 05:25 Labs: Abnormal Lab Results - Last 24 Hours (Table) 04/21/24 04/21/24 Range/Units 10:42 11:30 D-Dimer 0.78 H (<0.60) mg/L FEU Potassium 5.2 H (3.5-5.1) mmol/L BUN 22 H (7-17) mg/dL Glucose 127 H (74-99) mg/dL Alkaline Phosphatase 36 L (38-126) U/L
[2024-04-21] MEDS ORDERED: PANTOPRAZOLE 40 MG TABLET PO PRN (15:43)
[2024-04-21] MEDS ORDERED: DEXTROSE 50% SYRINGE 50 ML IVP PRN ×2 (15:44)
[2024-04-21 17:07] LABS: Glucose,Whole Blood 155 mg/dL (70-110)
[2024-04-21] MEDS: INSULIN ASPART (NovoLOG) 100 UNIT/ML VIAL SQ SCH (17:41)
[2024-04-21] MEDS: ALPRAZolam 0.25 MG TAB PO SCH (18:32)
[2024-04-21 20:10] LABS: Glucose,Whole Blood 176 mg/dL (70-110)
[2024-04-22 04:01] VITALS: RESP 18
[2024-04-22 05:53] LABS: Glucose,Whole Blood 132 mg/dL (70-110)
[2024-04-22 08:38] VITALS: BP 102/65; PULSE 77; TEMP 97.6
[2024-04-22] MEDS ORDERED: ASPIRIN 325 MG TAB PO SCH (09:00)
[2024-04-22] MEDS: ATORVASTATIN 10 MG TAB PO SCH (09:45)
[2024-04-22] MEDS: ENOXAPARIN 40 MG/0.4 ML SYRINGE SQ SCH (09:45)
[2024-04-22] MEDS: ASPIRIN 81 MG PO SCH (09:45)
[2024-04-22] MEDS: lisinopriL 10 MG TAB PO SCH (09:45)
--- NOTE | 2024-04-22 09:55 | P.CRDCN ---
History of Present Illness History of present illness: HISTORY OF PRESENT ILLNESS: This is a 79-year-old female with a past medical history significant for hypertension, hyperlipidemia, diabetes. Patient follows with Dr. Valenzuela. We have been asked to see the patient in consultation for chest pain. Patient examined at the bedside. Patient states yesterday she was cutting up vegetables at her house when she began to feel nauseated. She states that she went to sit down and then began to have chest pressure. She reports the pain lasted for about 15 minutes and then she decided to come to the hospital for further evaluation. She continued to have the chest pain for another 45 minutes and then it went away on its own. She denied receiving any sublingual nitro. She denies any further episodes of chest pain or pressure. She states she saw her screen printing inspector a week ago and she did relay that she has been feeling fatigued recently and getting short of breath with exertion. She is scheduled for a stress test on May 06, 2024 with her primary screen printing inspector. DIAGNOSTICS: - EKG reveals sinus mechanism with no signs of acute ischemia. Nonspecific ST-T wave changes. - Chest xray left basilar atelectasis or infiltrate. Within the abdomen is occasional air-fluid levels within the bowel. Correlate clinically. - Laboratory data: WBC 7.1. Hemoglobin 13.8. Platelet count 208. D-dimer 0.78. Sodium 137. Potassium 5.2. BUN 22. Creatinine 0.84. Troponin negative x 1 - Chest CTA: No evidence for pulmonary embolism. Mild emphysema. - Current home cardiac medications include lisinopril 10 mg daily, Lipitor 10 mg daily, metoprolol succinate 25 mg daily. REVIEW OF SYSTEMS: At the time of my exam: CONSTITUTIONAL: Denies fever or chills. HEENT: Denies blurred vision, vision changes, or eye pain. Denies hemoptysis CARDIOVASCULAR: Denies chest pain. Denies orthopnea. Denies PND. Denies palpitations RESPIRATORY: Denies shortness of breath. GASTROINTESTINAL: Denies abdominal pain. Denies nausea or vomiting. HEMATOLOGIC: Denies bleeding disorders. GENITOURINARY: Denies any blood in urine. SKIN: Denies pruitis. Denies rash. PHYSICAL EXAM: VITAL SIGNS: Reviewed. GENERAL: Well-developed in no acute distress. HEENT: Head is normocephalic. Pupils are equal, round. Sclerae anicteric. Mucous membranes of the mouth are moist. Neck supple. No JVD or thyromegaly LUNGS: Respirations even and unlabored. Lungs essentially clear to auscultation bilaterally. HEART: Regular rate and rhythm. S1 and S2 heard. ABDOMEN: Soft. Nondistended. Nontender. EXTREMITIES: Normal range of motion. No clubbing or cyanosis. Peripheral pu lses intact. No lower extremity edema NEUROLOGIC: Awake and alert. Oriented x 3. 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 Recommend discharging patient home with sublingual nitro Recommend patient take aspirin 81 mg daily Patient instructed to return back to the hospital if she has further episodes of chest pain or pressure. She verbalized understanding We will sign off. Please reconsult if needed. Nurse practitioner note has been reviewed by physician. Signing provider agrees with the documented findings, assessment, and plan of care documented by RESISTANCE WELDING MACHINE OPERATOR as a scribe. Past Medical History Past Medical History: Diabetes Mellitus Additional Past Medical History / Comment(s): IRREGULAR HEART RATE History of Any Multi-Drug Resistant Organisms: None Reported Past Surgical History: Appendectomy, Section, Cholecystectomy, Hysterectomy, Orthopedic Surgery, Tonsillectomy Additional Past Surgical History / Comment(s): 2 WRIST SURGERIES LEFT , colonoscopy Past Psychological History: No Psychological Hx Reported Smoking Status: Former smoker Past Alcohol Use History: Rare Past Drug Use History: None Reported Medications and Allergies Home Medications Medication Instructions Recorded Confirmed Type ALPRAZolam [Xanax] 0.25 mg PO DIRECTED 04/21/24 04/21/24 History Atorvastatin [Lipitor] 10 mg PO DAILY 04/21/24 04/21/24 History Empagliflozin [Jardiance] 25 mg PO DAILY 04/21/24 04/21/24 History Metoprolol Succinate [Metoprolol 25 mg PO DAILY 04/21/24 04/21/24 History Succinate ER] Omeprazole [PriLOSEC] 20 mg PO DAILY PRN 04/21/24 04/21/24 History glipiZIDE [Glucotrol] 10 mg PO AC-BID 04/21/24 04/21/24 History lisinopriL [Zestril] 10 mg PO DAILY 04/21/24 04/21/24 History metFORMIN HCL ER [Glucophage XR] 500 mg PO W/SUPPER 04/21/24 04/21/24 History Allergies Allergy/AdvReac Type Severity Reaction Status Date / Time phenylephrine AdvReac Swelling Verified 04/21/24 11:31 NARCOTICS AdvReac Vomiting Uncoded 04/21/24 10:22 Physical Exam Vitals: Vital Signs Temp Pulse Pulse Resp BP Pulse Ox 04/21/24 13:05 97.9 F 80 16 136/77 97 04/21/24 12:10 80 18 120/69 97 04/21/24 11:05 98.4 F 78 16 136/76 94 L 04/21/24 10:38 87 04/21/24 10:19 97.6 F 94 18 162/95 97 Intake and Output 04/20/24 04/21/24 04/21/24 22:59 06:59 14:59 Other: Weight 68.039 kg Results 04/21/24 10:42 04/21/24 10:42 Cardiac Enzymes 04/21/24 04/21/24 Range/Units 10:42 10:42 AST 31 (14-36) U/L Troponin I <0.012 (0.000-0.034) ng/mL Coagulation 04/21/24 Range/Units 11:30 PT 10.0 (10.0-12.5) sec APTT 22.5 (22.0-30.0) sec CBC 04/21/24 Range/Units 10:42 WBC 7.1 (3.8-10.6) k/uL RBC 4.34 (3.80-5.40) m/uL Hgb 13.8 (11.4-16.0) gm/dL Hct 41.2 (34.0-46.0) % Plt Count 208 (150-450) k/uL Comprehensive Metabolic Panel 04/21/24 Range/Units 10:42 Sodium 137 (137-145) mmol/L Potassium 5.2 H (3.5-5.1) mmol/L Chloride 105 (98-107) mmol/L Carbon Dioxide 26 (22-30) mmol/L BUN 22 H (7-17) mg/dL Creatinine 0.84 (0.52-1.04) mg/dL Glucose 127 H (74-99) mg/dL Calcium 9.7 (8.4-10.2) mg/dL AST 31 (14-36) U/L ALT 16 (4-34) U/L Alkaline Phosphatase 36 L (38-126) U/L Total Protein 6.7 (6.3-8.2) g/dL Albumin 4.1 (3.5-5.0) g/dL Current Medications Generic Name Dose Route Start Last Admin Trade Name Freq PRN Reason Stop Dose Admin Aspirin 325 mg 04/22/24 09:00 Aspirin 325 Mg Tab PO DAILY LOLI Nitroglycerin 0.4 mg 04/21/24 13:40 Nitroglycerin Sl Tabs 0.4 Mg Tab SUBLINGUAL Q5M PRN Chest Pain Intake and Output 04/20/24 04/21/24 04/21/24 22:59 06:59 14:59 Other: Weight 68.039 kg Patient Weight 04/22/24 06:59 Weight 68.039 kg 04/21/24 10:42 04/21/24 10:42
[2024-04-22] MEDS: METOPROLOL SUCCINATE (ER) 25 MG TAB.ER.24H PO SCH (09:56)
[2024-04-22 10:17] LABS: Blood Urea Nitrogen 17.9 mg/dL (9.0-27.0); Calcium 9.8 mg/dL (8.7-10.3); Carbon Dioxide 26.8 mmol/L (21.6-31.8); Chloride 106 mmol/L (96-109); Glucose 144 mg/dL (70-110); Potassium 4.9 mmol/L (3.5-5.5); Sodium 142 mmol/L (135-145)
[2024-04-22 10:53] LABS: HCT 40.3 % (37.2-46.3); HGB 12.9 g/dL (12.0-15.0); MCH 30.5 pg (27.0-32.0); MCV 95.3 FL (80.0-97.0); NRBC Per 100 WBC 0 X 10*3/uL (0.00-0.01); Platelet Count 198 X 10*3/uL (140-440); RBC 4.23 X 10*6/uL (4.10-5.20); RDW 12.7 % (11.5-14.5); WBC 7.55 X 10*3/uL (4.50-10.00)
[2024-04-22 12:27] LABS: Glucose,Whole Blood 143 mg/dL (70-110)
--- NOTE | 2024-04-22 12:49 | P.DS ---
Providers Date of admission: 04/21/24 13:39 Expected date of discharge: 04/22/24 Attending physician: Hector Graham MD Primary care physician: Silvino Joaquin Hospital Course: Discharge Diagnosis: Chest pain, acute coronary event ruled out. Continue daily medication regimen with aspirin 81 mg daily, atorvastatin 10 mg daily, lisinopril 10 mg daily, and metoprolol 25 mg daily. Patient to follow-up outpatient as scheduled with cardiology next week and for outpatient stress testing on May 06. Patient instructed to return to the emergency department immediately if chest pain returns.. Hypertension. Continue daily medication regimen with lisinopril 10 mg daily and metoprolol 25 mg daily. Hyperlipidemia. Continue daily medication regimen with atorvastatin 10 mg daily. Lipid profile was unremarkable. Diabetes mellitus with mild hyperglycemia. Hemoglobin A1c elevated at 8.9%. Patient encouraged to follow a heart healthy and carb consistent diet and to resume metformin 500 mg daily, glipizide 10 mg twice daily, and Jardiance 25 mg daily. Recommend repeat hemoglobin A1c in 3 months to monitor for improvement if no improvement patient may require additional changes made to her current medication regimen and/or started on insulin. Hyperkalemia. Secondary to hemolyzed specimen and showing resolution with repeat morning labs. Hospital Course: Patient is a very pleasant 79-year-old female with a past medical history of hypertension, hyperlipidemia, and [id number] diabetes mellitus. Patient reports she follows with Dr. Crystal, insulation board calender operator and was recently seen for her yearly checkup when she reported that she has noticed increased fatigue with minimal exertion as well as exertional dyspnea over the past couple of weeks. Patient reports she had an EKG done and was scheduled to undergo outpatient stress testing next week. Patient reports however this morning the symptoms significantly worsened and were accompanied by an episode of extreme nausea and vomiting followed by sudden onset pain/pressure to her left anterior chest. She denies radiation of this pain or anything making pain better or worse. Patient reports she has never experienced pain like this in the past and denies having any cardiac history. She reports both of her sons had heart attacks at young ages at the age of 35 and 42 and that they were diagnosed with factor V deficiency. She reports she has never had any cardiac stents or any previously diagnosed bleeding/clotting disorders. Patient states she became very anxious when she developed chest pain and her insisted that she came to the emergency department for evaluation. Patient denies having any headache, lightheadedness, dizziness, palpitations, cough or congestion, abdomin al pain or discomfort, or experiencing any numbness/tingling/weakness/swelling in her extremities. Patient currently reports pain resolved shortly after arrival to the emergency department. Vital signs upon arrival revealed blood pressure 162/95, heart rate 94, respiratory rate 18, temp 97.6 F, and SpO2 of 97% on room air. EKG was completed showing normal sinus rhythm 84 bpm with no noted T wave or ST abnormalities showing no signs of acute ischemia upon personal review and interpretation. Chest x-ray completed showing left basilar atelectasis otherwise negative for acute cardiopulmonary process labs were completed and reviewed. CBC unremarkable. BMP showing mild hyperkalemia with potassium of 5.2 but was a hemolyzed specimen otherwise showing mild prerenal azotemia with BUN of 22. Blood glucose 127. Magnesium 1.8. Liver profile showing no significant abnormalities. Troponin was less than 0.012 and proBNP was 73. D-dimer was slightly elevated at 0.78 but normal for age correction. CTA chest was negative for pulmonary embolism showing mild emphysema and bronchiectasis in the lung bases. Patient was given aspirin 324 mg p.o. x 1 dose and admitted under our services with consultation to cardiology. Troponins were trended and all were negative at less than 0.012 x 3 draws. Patient was evaluated by cardiology, they discussed the possibility of discharge versus patient staying until tomorrow for completion of echocardiogram and stress testing. Patient requesting discharge to follow-up outpatient as scheduled with her insulation board calender operator postdischarge for follow-up appointment and on May 06 for scheduled stress testing. Cardiology clearing patient from their perspective recommending patient be discharged home on aspirin 81 mg daily and sublingual nitro 0.4 mg every 5 minutes up to 3 doses as needed for chest pain. Patient is medically stable for discharge at this time. Patient instructed if chest pain/pressure returns she will need to return to the emergency department immediately. Patient verbalized understanding and denied having any further questions, needs, or concerns. Patient medically stable for discharge and to follow-up with PCP in 1 to 2 days and with insulation board calender operator in 1 week. Physical exam: Vital signs reviewed and stable. General: Nontoxic, no distress and appears stated age. Derm: Skin warm and dry, normal coloration for ethnicity. Head: Atraumatic, normocephalic and symmetric. Eyes: EOMs intact, no lid lag, and anicteric sclera Mouth: no lip lesions, mucus membranes moist Cardiovascular: regular rate and rhythm with normal S1S2, no murmur, positive posterior tibial pulses bilaterally, and cap refill < 2 seconds. Lungs: Respirations even, regular, and unlabored on room air. Lungs CTA bilaterally, no rhonchi, no rales, no wheezing, and no accessory muscle usage. Abdominal: soft, nontender to palpation, no guarding, no appreciable organomegaly Ext: ROM intact. No gross muscle atrophy, no edema, no contractures Neuro: Speech clear, face symmetrical and CN II-XII grossly intact with no noted focal neuro deficits Psych: Alert and oriented to person, place, time, and situation. Appropriate and pleasant affect. A total of 34 minutes of time were spent preparing this complex discharge summary. Pt was discharged on 04/22/2024 at 12:46 PM. Patient was seen independently by Nurse Practitioner. This document was prepared using [employer] dictation software. Please allow for errors in top ironer while rare they do occur. Chintan Avalos NP rendered care for this patient independently, reviewed the findings and plan as documented in the note above. I did not physically speak with or examine the patient on this date. Patient Condition at Discharge: Stable Plan - Discharge Summary Discharge Rx Participant: No New Discharge Prescriptions: New Aspirin 81 mg PO DAILY 30 Days #30 tab Nitroglycerin Sl Tabs [Nitrostat] 0.4 mg SUBLINGUAL Q5M PRN #25 tab PRN Reason: Chest Pain Continue Atorvastatin [Lipitor] 10 mg PO DAILY glipiZIDE [Glucotrol] 10 mg PO AC-BID Metoprolol Succinate [Metoprolol Succinate ER] 25 mg PO DAILY Empagliflozin [Jardiance] 25 mg PO DAILY lisinopriL [Zestril] 10 mg PO DAILY Omeprazole [PriLOSEC] 20 mg PO DAILY PRN PRN Reason: acid reflux ALPRAZolam [Xanax] 0.25 mg PO DIRECTED metFORMIN HCL ER [Glucophage XR] 500 mg PO W/SUPPER Discharge Medication List ALPRAZolam [Xanax] 0.25 mg PO DIRECTED 04/21/24 [History] Atorvastatin [Lipitor] 10 mg PO DAILY 04/21/24 [History] Empagliflozin [Jardiance] 25 mg PO DAILY 04/21/24 [History] Metoprolol Succinate [Metoprolol Succinate ER] 25 mg PO DAILY 04/21/24 [History] Omeprazole [PriLOSEC] 20 mg PO DAILY PRN 04/21/24 [History] glipiZIDE [Glucotrol] 10 mg PO AC-BID 04/21/24 [History] lisinopriL [Zestril] 10 mg PO DAILY 04/21/24 [History] metFORMIN HCL ER [Glucophage XR] 500 mg PO W/SUPPER 04/21/24 [History] Aspirin 81 mg PO DAILY 30 Days #30 tab 04/22/24 [Rx] Nitroglycerin Sl Tabs [Nitrostat] 0.4 mg SUBLINGUAL Q5M PRN #25 tab 04/22/24 [Rx] Follow up Appointment(s)/Referral(s): Silvino Joaquin MD [Primary Care Provider] - 1-2 days Patient Instructions/Handouts: Chest Pain (DC) Activity/Diet/Wound Care/Special Instructions: Activity: As tolerated. Take breaks as needed. Diet: Heart healthy and carb consistent diet. Avoid salts, or foods with hidden salts such as canned or boxed foods and frozen dinners. Extra salt makes your heart wo rk harder and traps the fluid in your body for longer. Special Instructions: Take all of your medications as directed and remember to keep all of your doc tor's appointments and follow-up as needed. Return to the emergency department immediately or call 911 for transport to the emergency department if chest pain returns and is not relieved by nitro. Follow-up with your insulation board calender operator as scheduled next week for evaluation and recommended outpatient stress testing. Thank you for allowing us to participate in your care, it was truly a pleasure having you for our patient!!! Discharge Disposition: HOME SELF-CARE
== END 2024-04-22 13:25 | disposition home or self-care (01) ==
LOC: EC 10:18 → 6NMEDSUR 13:39
PROVIDERS: ADMIT Student in an Organized Health Care Education/Training Program; ATTEND Student in an Organized Health Care Education/Training Program
DX: R07.89 Other chest pain (principal); E87.5 Hyperkalemia; E11.65 Type 2 diabetes mellitus with hyperglycemia; J43.9 Emphysema, unspecified; J47.9 Bronchiectasis, uncomplicated; I10 Essential (primary) hypertension; E78.5 Hyperlipidemia, unspecified; R79.89 Other specified abnormal findings of blood chemistry; Z79.84 Long term (current) use of oral hypoglycemic drugs; Z79.899 Other long term (current) drug therapy; Z88.5 Allergy status to narcotic agent; Z88.8 Allergy status to other drugs, medicaments and biological substances; Z87.891 Personal history of nicotine dependence
CPT/HCPCS: 96372; 99285; 36415; 94760; 93005; 85379; 83880; 80061; 80053; 80048; 83735 ×2; 84484; 85025; 85027; 85610; 85730; 83036; 71046; 71275; G0378 ×2; J1650; Q9967

== ENCOUNTER → 2024-04-30 | Outpatient (CLI) | payer MEDICARE | END | disposition home or self-care (01) | LOC: LABWHC1 08:48 | PROVIDERS: ATTEND Family Medicine | DX: Z83.2 Family history of diseases of the blood and blood-forming organs and certain disorders involving the immune mechanism (principal) | CPT/HCPCS: 36415; 81241 ==

== ENCOUNTER 2025-05-20 20:27 | Emergency (ER) | payer MEDICARE ==
[2025-05-20 20:32] VITALS: RESP 18
--- NOTE | 2025-05-20 21:04 | ED ---
Abdominal Pain HPI - General Chief Complaint: Abdominal Pain Stated Complaint: Abd pain Time Seen by Provider: 05/20/25 21:00 Source: patient, RN notes reviewed Mode of arrival: ambulatory Limitations: no limitations - History of Present Illness Initial Comments: 80-year-old female presenting for epigastric pain 1 hour ago. States she was eating grilled salmon for dinner when she suddenly began to experience a severe, cramping pain in her epigastric area with associated diaphoresis and nausea. States the pain lasted approximately 30 minutes and has now subsided. Patient states her abdomen is still "sensitive" however the severe pain has subsided. Denies chest pain, shortness of breath, fevers, numbness or tingling of the extremities. Patient does have a history of diabetes, hypertension, and high cholesterol. Denies any history of MIs. She does have a history of appendectomy, cholecystectomy, , and hysterectomy. She is a non- smoker. Denies alcohol use today - Related Data Home Medications Medication Instructions Recorded Confirmed ALPRAZolam [Xanax] 0.25 mg PO DIRECTED 04/21/24 04/21/24 Atorvastatin [Lipitor] 10 mg PO DAILY 04/21/24 04/21/24 Empagliflozin [Jardiance] 25 mg PO DAILY 04/21/24 04/21/24 Metoprolol Succinate [Metoprolol 25 mg PO DAILY 04/21/24 04/21/24 Succinate ER] Omeprazole [PriLOSEC] 20 mg PO DAILY PRN 04/21/24 04/21/24 glipiZIDE [Glucotrol] 10 mg PO AC-BID 04/21/24 04/21/24 lisinopriL [Zestril] 10 mg PO DAILY 04/21/24 04/21/24 metFORMIN HCL ER [Glucophage XR] 500 mg PO W/SUPPER 04/21/24 04/21/24 Previous Rx's Medication Instructions Recorded Aspirin 81 mg PO DAILY 30 Days #30 tab 04/22/24 Nitroglycerin Sl Tabs [Nitrostat] 0.4 mg SUBLINGUAL Q5M PRN #25 tab 04/22/24 Allergies Allergy/AdvReac Type Severity Reaction Status Date / Time phenylephrine AdvReac Swelling Verified 05/20/25 20:32 NARCOTICS AdvReac Vomiting Uncoded 05/20/25 20:32 Review of Systems ROS Statement: Those systems with pertinent positive or pertinent negative responses have been documented in the HPI. ROS Other: All systems not noted in ROS Statement are negative. Past Medical History Past Medical History: Diabetes Mellitus Additional Past Medical History / Comment(s): IRREGULAR HEART RATE History of Any Multi-Drug Resistant Organisms: None Reported Past Surgical History: Appendectomy, Section, Cholecystectomy, Hysterectomy, Orthopedic Surgery, Tonsillectomy Additional Past Surgical History / Comment(s): 2 WRIST SURGERIES LEFT , colonoscopy Past Psychological History: No Psychological Hx Reported Smoking Status: Former smoker Past Alcohol Use History: Rare Past Drug Use History: None Reported General Exam Limitations: no limitations General appearance: alert, in no apparent distress Head exam: Present: atraumatic, normocephalic, normal inspection Eye exam: Present: normal appearance, PERRL, EOMI. Absent: scleral icterus, conjunctival injection, periorbital swelling ENT exam: Present: normal exam, mucous membranes moist Neck exam: Present: normal inspection. Absent: tenderness, meningismus, lymphadenopathy Respiratory exam: Present: normal lung sounds bilaterally. Absent: respiratory distress, wheezes, rales, rhonchi, stridor, chest wall tenderness, accessory muscle use Cardiovascular Exam: Present: regular rate, normal rhythm, normal heart sounds. Absent: systolic murmur, diastolic murmur, rubs, gallop, clicks GI/Abdominal exam: Present: soft, normal bowel sounds. Absent: distended, tenderness, guarding, rebound, rigid Back exam: Absent: CVA tenderness (R), CVA tenderness (L) Neurological exam: Present: alert, oriented X3 Psychiatric exam: Present: normal affect, normal mood Skin exam: Present: warm, dry, intact, normal color. Absent: rash Course Vital Signs 05/20/25 05/20/25 20:29 22:56 Temperature 98.1 F Pulse Rate 91 93 Respiratory 18 18 Rate Blood Pressure 142/80 111/56 O2 Sat by Pulse 97 95 Oximetry Medical Decision Making - Medical Decision Making Was pt. sent in by a medical professional or institution (, PA, OIL AND GAS WELL TREATMENT OPERATOR, urgent care, hospital, or longterm...) When possible be specific @ -No Did you speak to anyone other than the patient for history (EMS, parent, family, police, friend...)? What history was obtained from this source @ -No Did you review nursing and triage notes (agree or disagree)? Why? @ -I reviewed and agree with nursing and triage notes Were old charts reviewed (outside hosp., previous admission, EMS record, old EKG, old radiological studies, urgent care reports/EKG's, longterm records)? Report findings @ -No old charts were reviewed Differential Diagnosis (chest pain, altered mental status, abdominal pain women, abdominal pain men, vaginal bleeding, weakness, fever, dyspnea, syncope, headache, dizziness, GI bleed, back pain, seizure, CVA, palpatations, mental health, musculoskeletal)? @ -Differential Abdominal Pain Women: Appendicitis, Cholecystitis, diverticulosis, ischemic bowel, pancreatitis, hepatitis, UTI, gastroenteritis, AAA, incarcerated hernia, bowel obstruction, constipation, inflammatory bowel, hepatitis, peptic ulcer disease, splenic infarction, perforated viscus, vulvitis, ovarian torsion, PID, kidney stone, placenta abruption, this is not meant to be an all-inclusive list EKG interpreted by me (3pts min.). @ -As above X-rays interpreted by me (1pt min.). @ -None done CT interpreted by me (1pt min.). @ -None done U/S interpreted by me (1pt. min.). @ -None done What testing was considered but not performed or refused? (CT, X-rays, U/S, labs)? Why? @ -Patient declines pain or nausea medication at this time What meds were considered but not given or refused? Why? @ -None Did you discuss the management of the patient with other professionals (professionals i.e. , PA, OIL AND GAS WELL TREATMENT OPERATOR, lab, RT, psych nurse, licensed clinical social worker, lawyer probate, teacher, founder and chief technical officer, case hardener)? Give summary @ -No Was smoking cessation discussed for >3mins.? @ -No Was critical care preformed (if so, how long)? @ -No Were there social determinants of health that impacted care today? How? (Homelessness, low income, unemployed, alcoholism, drug addiction, transportation, low edu. Level, literacy, decrease access to med. care, intermediate, rehab)? @ -No Was there de-escalation of care discussed even if they declined (Discuss DNR or withdrawal of care, Hospice)? DNR status @ -No What co-morbidities impacted this encounter? (DM, HTN, Smoking, COPD, CAD, Cancer, CVA, ARF, Chemo, Hep., AIDS, mental health diagnosis, sleep apnea, morbid obesity)? @ -None Was patient admitted / discharged? Hospital course, mention meds given and route, prescriptions, significant lab abnormalities, going to OR and other pertinent info. @ - discharge. 80-year-old female presenting for epigastric pain 1 hour ago. Patient reports pain has subsided at time of my initial physical examination. Denies chest pain or shortness of breath. Abdomen soft nontender. EKG reveals normal sinus rhythm with no acute ST changes. Lab work unremarkable. Repeat initial and repeat troponin undetectable. Upon reevaluation, patient continues to be asymptomatic. Patient can be safely discharged home with appropriate return precautions and close follow-up care. Case was discussed with the ED attending Dr. Montemayor Undiagnosed new problem with uncertain prognosis? @ -No Drug Therapy requiring intensive monitoring for toxicity (Heparin, Nitro, I nsulin, Cardizem)? @ -No Were any procedures done? @ -No Diagnosis/symptom? @ -Abdominal pain Acute, or Chronic, or Acute on Chronic? @ -Acute Uncomplicated (without systemic symptoms) or Complicated (systemic symptoms)? @ -Uncomplicated Side effects of treatment? @ -No Exacerbation, Progression, or Severe Exacerbation? @ -No Poses a threat to life or bodily function? How? (Chest pain, [place], [place], pneumonia, PE, COPD, DKA, ARF, appy, cholecystitis, CVA, Diverticulitis, Homicidal, Suicidal, threat to staff... and all critical care pts) @ -No - Lab Data Result diagrams: 05/20/25 21:10 05/20/25 21:10 Lab Results 05/20/25 05/20/25 05/20/25 Range/Units 21:10 21:10 21:10 WBC 12.63 H (4.50-10.00) 10*3/uL RBC 4.65 (4.10-5.20) 10*6/uL Hgb 14.6 (12.0-15.0) g/dL Hct 43.4 (37.2-46.3) % MCV 93.3 (80.0-97.0) fL MCH 31.4 (27.0-32.0) pg MCHC 33.6 (32.0-37.0) g/dL Plt Count 228 (140-440) 10*3/uL MPV 10.1 (9.5-12.2) fL Immature Gran % (Auto) 0.5 % Neutrophils % 73.6 % Lymphocytes % 14.7 % Monocytes % 8.8 % Eosinophils % 1.8 % Basophils % 0.6 % Immature Gran # 0.06 H (0.00-0.04) 10*3/uL Neutrophils # 9.29 H (1.80-7.70) 10*3/uL Lymphocytes # 1.86 (0.90-5.00) 10*3/uL Monocytes # 1.11 H (0.20-1.00) 10*3/uL Eosinophils # 0.23 (0.04-0.35) 10*3/uL Basophils # 0.08 (0.00-0.10) 10*3/uL Sodium 135 L (137-145) mmol/L Potassium 4.6 (3.5-5.1) mmol/L Chloride 99 (98-107) mmol/L Carbon Dioxide 27 (22-30) mmol/L Anion Gap 9 mmol/L BUN 21 H (7-17) mg/dL Creatinine 1.08 H (0.52-1.04) mg/dL Est GFR (CKD-EPI)AfAm 56 (>60 ml/min/1.73 sqM) Est GFR (CKD-EPI)NonAf 49 (>60 ml/min/1.73 sqM) Glucose 227 H (74-99) mg/dL Plasma Lactic Acid Daniel 1.3 (0.7-2.0) mmol/L Calcium 9.6 (8.4-10.2) mg/dL Total Bilirubin 0.9 (0.2-1.3) mg/dL AST 50 H (14-36) U/L ALT 29 (4-34) U/L Alkaline Phosphatase 75 (38-126) U/L Troponin I (0.000-0.034) ng/mL Total Protein 6.6 (6.3-8.2) g/dL Albumin 4.2 (3.5-5.0) g/dL Amylase 50 (30-110) U/L Lipase 216 (23-300) U/L 05/20/25 05/21/25 Range/Units 21:10 00:15 WBC (4.50-10.00) 10*3/uL RBC (4.10-5.20) 10*6/uL Hgb (12.0-15.0) g/dL Hct (37.2-46.3) % MCV (80.0-97.0) fL MCH (27.0-32.0) pg MCHC (32.0-37.0) g/dL Plt Count (140-440) 10*3/uL MPV (9.5-12.2) fL Immature Gran % (Auto) % Neutrophils % % Lymphocytes % % Monocytes % % Eosinophils % % Basophils % % Immature Gran # (0.00-0.04) 10*3/uL Neutrophils # (1.80-7.70) 10*3/uL Lymphocytes # (0.90-5.00) 10*3/uL Monocytes # (0.20-1.00) 10*3/uL Eosinophils # (0.04-0.35) 10*3/uL Basophils # (0.00-0.10) 10*3/uL Sodium (137-145) mmol/L Potassium (3.5-5.1) mmol/L Chloride (98-107) mmol/L Carbon Dioxide (22-30) mmol/L Anion Gap mmol/L BUN (7-17) mg/dL Creatinine (0.52-1.04) mg/dL Est GFR (CKD-EPI)AfAm (>60 ml/min/1.73 sqM) Est GFR (CKD-EPI)NonAf (>60 ml/min/1.73 sqM) Glucose (74-99) mg/dL Plasma Lactic Acid Daniel (0.7-2.0) mmol/L Calcium (8.4-10.2) mg/dL Total Bilirubin (0.2-1.3) mg/dL AST (14-36) U/L ALT (4-34) U/L Alkaline Phosphatase (38-126) U/L Troponin I <0.012 <0.012 (0.000-0.034) ng/mL Total Protein (6.3-8.2) g/dL Albumin (3.5-5.0) g/dL Amylase (30-110) U/L Lipase (23-300) U/L - EKG Data -: EKG Interpreted by Pr EKG Comments: EKG reveals normal sinus rhythm with no acute ST changes. Ventricular rate 87 bpm, AL interval 145, QRS duration 93, QT/QTc 356/401 Disposition Clinical Impression: Abdominal pain Disposition: HOME SELF-CARE Condition: Stable Instructions (If sedation given, give patient instructions): Abdominal Pain (ED) Additional Instructions: Please return to the Emergency Department if symptoms worsen or any other concerns. Is patient prescribed a controlled substance at d/c from ED?: No Referrals: Silvino Joaquin MD [Primary Care Provider] - 1-2 days Time of Disposition: 02:26
[2025-05-20 22:12] LABS: Basophils # (A) 0.08 10*3/uL (0.00-0.10); Basophils % (A) 0.6 %; Eosinophils # (A) 0.23 10*3/uL (0.04-0.35); Eosinophils % (A) 1.8 %; HCT 43.4 % (37.2-46.3); HGB 14.6 g/dL (12.0-15.0); Lymphocytes # (A) 1.86 10*3/uL (0.90-5.00); Lymphocytes % (A) 14.7 %; MCH 31.4 pg (27.0-32.0); MCHC 33.6 g/dL (32.0-37.0); MCV 93.3 fL (80.0-97.0); Monocytes # (A) 1.11 10*3/uL (0.20-1.00); Monocytes % (A) 8.8 %; Neutrophils # (A) 9.29 10*3/uL (1.80-7.70); Neutrophils % (A) 73.6 %; Platelet Count 228 10*3/uL (140-440); RBC 4.65 10*6/uL (4.10-5.20); RDW 12.4 % (11.5-14.5); WBC 12.63 10*3/uL (4.50-10.00)
[2025-05-20 22:17] LABS: ALT 29 U/L (4-34); AST 50 U/L (14-36); African American GFR (CKD) 56 (>60 ml/min/1.73 sqM); Albumin 4.2 g/dL (3.5-5.0); Alkaline Phosphatase 75 U/L (38-126); Amylase 50 U/L (30-110); Anion Gap 9 mmol/L; Blood Urea Nitrogen 21 mg/dL (7-17); Calcium 9.6 mg/dL (8.4-10.2); Carbon Dioxide 27 mmol/L (22-30); Chloride 99 mmol/L (98-107); Glucose 227 mg/dL (74-99); Lipase 216 U/L (23-300); Non-African American GFR(CKD) 49 (>60 ml/min/1.73 sqM); Potassium 4.6 mmol/L (3.5-5.1); Sodium 135 mmol/L (137-145); Total Protein 6.6 g/dL (6.3-8.2)
[2025-05-21 02:33] VITALS: BP 111/68; PULSE 91; TEMP 97.8
== END 2025-05-21 02:34 | disposition home or self-care (01) ==
LOC: EC 20:27
DX: R10.13 Epigastric pain (principal); Z87.891 Personal history of nicotine dependence; Z88.5 Allergy status to narcotic agent; Z88.8 Allergy status to other drugs, medicaments and biological substances
CPT/HCPCS: 36415; 80053; 82150; 83605; 83690; 84484; 85025; 93005; 99284